=== PATIENT | female | born 1940 | race Caucasian/White ===

== ENCOUNTER 2025-05-25 10:32 | Outpatient (AMB) | payer MEDICARE, SELFPAY ==
--- NOTE | 2025-05-25 10:33 | A.OFFVIS_ITS ---
Vital Signs 05/25/25 10:37 Height 5 ft 8 in BP 140/76 H Blood Pressure Location Rt brachial Position Sitting Pulse 81 Pulse Source Pulse Oximeter Pulse Oximetry (%) 97 Oxygen Delivery Method Room Air Intake Visit Reasons: ENP - Parkinson's, Tremors, Falls, Magnetic Gait Intake Note: Parkinson's, Tremors and Falls Hospice/Home Health Aide Required: No Accompanied by: Daughter Allergies erythromycin base Allergy (Unknown, Verified 05/25/25 10:33) Unknown Penicillins Allergy (Unknown, Verified 05/25/25 10:33) Unknown Medication List - Last Reconciled 05/25/25 by Diane Butterfield MD alendronate 70 mg PO QWEEK cholecalciferol (vitamin D3) 25 mcg PO DAILY fluticasone propionate 50 mcg/actuation 1 spray intranasal DAILY losartan 100 mg PO DAILY mecobalamin (vitamin B12) 1,000 mcg PO DAILY melatonin 3 mg PO BEDTIME PRN sertraline (Zoloft) 100 mg PO DAILY HPI Comments Details: 84Y/Bartolome comes for evaluation of possible parkinsons. she is currently at [facility] for pats 7 mths and has difficulty adjusting . At the facility her PCP noticed some parkinsonian features. she has occasional tremors in colleen hands .she denies memory issues now but when she was depressed her cognition was worse.she is accompanied by her daughter who is concerned a bout her memory she reports chronic pain due to spinal stenosis , rheumatoid arthritis and worsens her depression she has frequent falls. she denies any vivid dreams or acting out her dreams she has longstanding h/o depression with recent worsening due to her medical issues she used to be independent prior to her falls , compression fracture that started last year. Her voice is softer , has some drooling , hand writing is smaller,she can use her utensils , has trouble dressing and showers- gets help. 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 Father No problems noted. Social History Comment: Social drinker Patient Tobacco Use Status: Current someday Tobacco user Physical Exam Vital Signs: Last Vital Signs Pulse 81 05/25/25 10:37 BP 140/76 H 05/25/25 10:37 Pulse Ox 97 05/25/25 10:37 Oxygen Delivery Method Room Air 05/25/25 10:37 Const Orientation/consciousness: patient oriented x3 Eyes Pupils: Equal, round and reactive pupils present Neuro Other: Mild decreased blink and facial expression Mild hyphonia No tremors Mild cogwheel rigidity colleen UE FFM decreased colleen Foot taps - decreased colleen Gait- stooped , pain in back slow and off balance General: patient oriented x3, moves all extremities and no focal motor deficits Cranial nerves: Yes Facial sensation intact/muscles of mastication intact, Yes Equal, round and reactive pupils present, Yes Bilaterally intact EOM present, Yes Nystagmus not present, Yes Normal facial strength present, Yes Midline tongue present and Yes Ability to bilaterally elevate shoulders present Motor exam (neuro): 5/5 motor strength present throughout Deep tendon reflexes (DTR's): Right triceps reflex intensity grade: 2+, Left triceps reflex intensity grade: 2+, Rt Biceps (C5, C6): 2+, Left biceps reflex intensity grade: 2+, Right brachioradialis reflex intensity grade: 2+, Left brachioradialis reflex intensity grade: 2+, Right patellar reflex intensity grade: 2+ and Left patellar reflex intensity grade: 1+ Coordination: [id number] test normal Assessment & Plan Assessment & Plan (1) Cognitive impairment: Code(s): R41.89 - Other symptoms and signs involving cognitive functions and awareness Category: Medical (2) Parkinsonism: Comment: ? vascular , spinal stenosis. she has frequent falls Code(s): G20.C - Parkinsonism, unspecified Category: Medical Plan MRI report bob Loja for review Neuropsych evaluation I will trial her on carbidopa/levodopa 25/100 bid to see of it helps with her gait and movements Check Vit B 12 TSH ESR BARTOLO CBC and CMP to r/o revrsible causes Orders: Referrals Neuropsychiatry Referral R41.89 - Other symptoms and signs involving cognitive functions and awareness Medications: New carbidopa-levodopa 25-100 mg (Sinemet) 1 tab PO BID 60 tabs 4RF Coding Level of Care Code New Pt Level 4 (51581) Complex visit Add On G2211 Diagnoses Cognitive impairment R41.89 Parkinsonism G20.C
[2025-05-25 10:37] VITALS: BP 140/76; PULSE 81; O2SAT 97
--- OUTSIDE RECORDS SUMMARY | 2025-05-25 12:35 | XMS_ITS | Encounter Summary ---
Author Organization [facility] Address [address] [place] [address] Phone Care Team Providers Care Home Advisor Name Role Phone Venkata Walton MD Primary Care Provider [phone]- [phone] Encounter Details Date Type Department Care Team (Late st Contact Info) Description 02/22/2025 Procedure Pass [facility] Interventional [facility]iology [address] [place] [address] Social History Tobacco Use Types Packs/Day Years Used Date Smoking Tobacco: Never Smokeless Tobacco: Never Alcohol Use Standard Drinks/Week Comments No 0 (1 standard drink = 0.6 oz pur e alcohol) Home Health Assessment: Transportation Answer Date Recorded Lack of Transportation (Medical) No 05/24/2024 Lack of Transportation (Non-Medical) No 05/24/2024 Patient Unable or Declines to Respond No 05/24/2024 Education Answer Date Recorded Are you interested in more education? Not on esther e 10/25/2022 Are you concerned about learning? Not on file 10/25/2022 No 10/25/2022 No 10/25/2022 Digital Access Answer Date Recorded No 11/25/2022 No 11/25/2022 Reliable internet access at home? Not on file 11/25/2022 Device with a working camera? Not on file Intimate Partner Violence Answer Date R ecorded Are you denied basic needs s uch as food, clothing, or medical care? No 02/22/2025 In the past 12 months have y ou been in a relationship with a person who hurts, threatens, or tries to control you? No 02/22/2025 Are you denied basic needs s uch as food, clothing, or medical care? No 02/22/2025 In the past 12 months have y ou been in a relationship with a person who hurts, threatens, or tries to control you? No 02/22/2025 Comments No Sex and Gender Information Value Date Recorded Sex Assigned at Female 06/17/2024 3:27 PM EST Legal Sex Female 10:12 PM EDT Gender Identity Female 06/17/2024 3:27 PM EST Sexual Orientation Not on file documented as of this encounter Plan of Treatment Upcoming Encounters Date Type Department Care Team (Late st Contact Info) Description 07/04/2025 9:45 AM EST Office Visit [facility] [address] [place] [address] Vijaya Berger PA-C [address] [address] 07/04/2025 3:00 PM EST Office Visit [facility] [address] [place] [address] Keyana Gutierrez MD [address] [place] [phone] [email or web address] documented as of this encounter Visit Diagnoses Not on filedocumented in this encounter Care Teams Home Advisor Relationship Specialty Start Date End Date Venkata Walton MD [address] [place] [address] PCP - General 07/03/17 documented as of this encounter Additional Source Comments The information contained in this document represents components of the legal health record. It is not the complete legal health record.[facility]
--- OUTSIDE RECORDS SUMMARY | 2025-05-25 12:35 | XMS_ITS | Encounter Summary ---
Author Organization [facility] Address [address] [place] [address] Phone Care Team Providers Care Caul Fat Puller Name Role Phone Venkata Walton MD Primary Care Provider +1- [phone] Encounter Details Date Type Department Care Team (Late st Contact Info) Description 09/08/2017 Ancillary Orders Non-Invasive Cardiology [address] [place] [address] Venkata Walton MD [address] [place] [address] [email or web address] Other form of dyspnea Social History Tobacco Use Types Packs/Day Years Used Date Smoking Tobacco: Never Smokeless Tobacco: Never Alcohol Use Standard Drinks/Week Comments No 0 (1 standard drink = 0.6 oz pur e alcohol) Comments Unknown Sex and Gender Information Value Date Recorded Sex Assigned at Female 06/17/2024 3:27 PM EST Legal Sex Female 10:12 PM EDT Gender Identity Female 06/17/2024 3:27 PM EST Sexual Orientation Not on file documented as of this encounter Plan of Treatment Upcoming Encounters Date Type Department Care Team (Late st Contact Info) Description 07/04/2025 9:45 AM EST Office Visit [facility] Gastroenterology Clinic 10 [place] [address] Vijaya Berger PA-C [address] [id number] 07/04/2025 3:00 PM EST Office Visit [facility] [address] [place] [address] [place] [address] Keyana Gutierrez MD [address] [place] [phone] [email or web address] documented as of this encounter Results * NC Stress Result for Nuclear Stress Test (NWH) (09/08/2017 10:37 AM EDT) Max BP Systolic 160 mmHg [facility] Max BP Diastolic 60 mmHg [facility] Max HR 139 BPM [facility] Resting HR 96 BPM [facility] Resting BP Systolic 130 mmHg [facility] Resting BP Diastolic 80 mmHg [facility] Peak METS 7.0 METS [facility] Peak HR 139 BPM [facility] Peak BP Systolic 160 mmHg [facility] Peak BP Diastolic 60 mmHg [facility] Anatomical Region Laterality Modality Heart Other 09/08/2017 9:57 AM EDT 09/08/2017 10:37 AM EDT Narrative 09/08/2017 12:31 PM EDT Stress Test Result The heart rate changed from 96 bpm at rest to 139 bpm at peak stress. The blood pressure changed from 130/80 mmHg at rest to 160/60 mmHg at peak stress. The patient's functional capacity is 7.0 METS. Exercise Stress Test Report: Reason for termination: fatigue Summary: Resting ECG: SR/ST HR 83-103 incomplete IVCD and NSSTW Functional capacity:Good Heart rate response to exercise:Appropriate Blood pressure response to exercise:Normal resting-appropriate response Chest pain:None Arrhythmias:Ocassional PAC ST-T changes:See below Overall impression: Equivocal exercise test Conclusion: Caterina Chopra exercised for 6:16 Minutes on a standard Neville protocol achieving 96% MPHR (139 BPM) and 7.00 METS. Test terminated due to fatigue Summary: 1. EKG: T wave inversions in infero/lateral leads in recovery phase 2. Symptoms: No exertional chest pain or symptoms concerning for angina 3. Exercise physiology: Normal heart rate and BP response to exercise. Max HR 139 with normal HR recovery. Max BP 160/60 from baseline BP of 130/80 . 02 sat 96% and stable throughout the procedure. Good functional capacity for age noted 4. Arrhythmia:Ocassional PAC Conclusion: Equivocal ETT. T wave inversions in infero/lateral leads in recovery phase. No exertional chest pain or symptoms concerning for angina. Vital signs at baseline at time of discharge from the lab. Nuclear images to follow. EKG reviewed with Dr. Ventura. Dana Ragsdale PHARMACY OPERATIONS COORDINATOR us Venkata Walton MD CV NM CARDIAC Final Resu lt documented in this encounter Visit Diagnoses Diagnosis Other form of dyspnea Other form of dyspnea documented in this encounter Care Teams Caul Fat Puller Relationship Specialty Start Date End Date Venkata Walton MD [address] [place] [address] [email or web address] PCP - General 07/03/17 documented as of this encounter Additional Source Comments The information contained in this document represents components of the legal health record. It is not the complete legal health record.[facility]
--- OUTSIDE RECORDS SUMMARY | 2025-05-25 12:35 | XMS_ITS | Encounter Summary ---
Author Organization [facility] Address [address] [place] [address] Phone Care Team Providers Care High Pressure Firer Name Role Phone Venkata Walton MD Primary Care Provider +1- [phone] Reason for Referral * MRI/CAT Scan - Closed Specialty Diagnoses / Procedures Referred By Contac t Referred To Contact Radiology Diagnoses Other form of dyspnea Procedures NC Myocardial Perfusion Exercise Multiple Venkata Walton MD Phone: tel: fax: mailto: Referral ID Status Reason Start Date Expiration Date Visits Re quested Visits Authorized [id number] Closed 09/01/2017 09/01/2018 1 1 Encounter Details Date Type Department Care Team (Late st Contact Info) Description 09/01/2017 Ancillary Orders Virtual Department 30 [place] [address] Venkata Walton MD [address] [place] [address] [email or web address] Other form of dyspnea Social History [...] Description 07/04/2025 9:45 AM EST Office Visit [facility] Gastroenterology Clinic 10 [place] [address] Vijaya Berger PA-C [address] [facility] 2 [place] [address] [email or web address] 07/04/2025 3:00 PM EST Office Visit [facility] [address] [place] [address] Keyana Gutierrez MD [address] [address] [email or web address] documented as of this encounter Results * NC Myocardial Perfusion Exercise Multiple (09/08/2017 10:37 AM EDT) Anatomical Region Laterality Modality Heart, Vascular Nuclear Medicine 09/08/2017 11:2 5 AM EDT Impressions 09/08/2017 11:46 AM EDT Normal cardiac scintigraphy. No findings of prior infarction or current ischemia are seen. The appearance is unchanged relative to prior imaging. S/S: Dyspnea, shortness of breath POS - [id number] Narrative 09/08/2017 11:46 AM EDT The patient is injected intravenously with 10 mCi of Tc99m labeled Cardiolite at rest and 31.3 mCi with the same agent at stress. SPECT images are obtained of both injections and are gated at stress. The patient is stressed utilizing an exercise protocol and achieved a peak heart rate which is 96% of that predicted. Evaluation of the left ventricular perfusion discloses a normal sized left ventricular cavity. No fixed or reversible perfusion defects are seen. There is normal wall motion and wall thickening evident with a greater than 70% left ventricular ejection fraction estimated. No significant changes seen relative to prior imaging from July 27, 2015.. Procedure Note Kobe Boone MD - 09/08/2017 The patient is injected intravenously with 10 mCi of Tc99m labeledCardiolite at rest and 31.3 mCi with the same agent at stress. SPECTimages are obtained of both injections and are gated at stress. Thepatient is stressed utilizing an exercise protocol and achieved a peakheart rate which is 96% of that predicted. Evaluation of the left ventricular perfusion discloses a normal sized leftventricular cavity. No fixed or reversible perfusion defects are seen.There is normal wall motion and wall thickening evident with a greaterthan 70% left ventricular ejection fraction estimated. No significantchanges seen relative to prior imaging from July 27, 2015.. IMPRESSION: Normal cardiac scintigraphy. No findings of prior infarction or currentischemia are seen. The appearance is unchanged relative to priorimaging. S/S: Dyspnea, shortness of breath POS - [id number] Venkata Walton MD CV NM CARDIAC Final Resu lt documented in this encounter Visit Diagnoses Diagnosis Other form of dyspnea Other form of dyspnea documented in this encounter Care Teams High Pressure Firer Relationship Specialty Start Date End Date Venkata Walton MD [address] [place], [place] [id number] [email or web address] PCP - General 07/03/17 documented as of this encounter Additional Source Comments The information contained in this document represents components of the legal health record. It is not the complete legal health record.[facility]
--- OUTSIDE RECORDS SUMMARY | 2025-05-25 12:35 | XMS_ITS | Encounter Summary ---
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 Procedures Evaluate & Treat Syed Sequeira MD Phone: tel: fax: [address] [address] Phone: tel: Referral ID Status Reason Start Date Expiration Date Visits Re quested Visits Authorized [id number] Closed 10/24/2021 06/29/2022 50 50 Encounter Details Date Type Department Care Team (Latest Contact Info) Description 06/13/2021 Transcribe Orders [facility] [address] [place] [address] Syed Sequeira MD [address] [place] [address] Encounter for rehabilitation (Primary Dx) Social History Tobacco Use Types Packs/Day Years [...] Description 07/04/2025 9:45 AM EST Office Visit [facility] Gastroenterology Clinic 10 [place] [address] Vijaya Berger PA-C [address] [address] 07/04/2025 3:00 PM EST Office Visit [facility] [address] [place] [address] Keyana Gutierrez MD [address] [place] [address] [email or web address] Scheduled Referrals Name Type Priority Associated Diagnoses Orde r Schedule Ambulatory referral to [facility] Occupational Therapy Outpatient Referral Routine Encounter for rehabilitation Ordered: 06/13/2021 documented as of this encounter Visit Diagnoses Diagnosis Encounter for rehabilitation- Primary documented in this encounter Care Teams Retrieval Specialist Relationship Specialty Start Date End Date Venkata Walton MD [address] [place] [address] PCP - General 07/03/17 documented as of this encounter Additional Source Comments The information contained in this document represents components of the legal health record. It is not the complete legal health record.[facility]
--- OUTSIDE RECORDS SUMMARY | 2025-05-25 12:35 | XMS_ITS | Encounter Summary ---
Author Organization [facility] Address [address] [place] [address] Phone Care Team Providers Care Lettuce Trimmer Name Role Phone Venkata Walton MD Primary Care Provider +1- [phone] Encounter Details Date Type Department Care Team (Late st Contact Info) Description 09/08/2017 Ancillary Orders Virtual Department [address] [place] [address] Venkata Walton MD [address] [place] [address] Social History Tobacco Use Types Packs/Day Years [...] 07/04/2025 9:45 AM EST Office Visit [facility] Gastroenterology Clinic 10 [place] [address] Vijaya Berger PA-C [address] [address] 07/04/2025 3:00 PM EST Office Visit [facility] [address] [place] [address] Keyana Gutierrez MD [address] [place] [address] [email or web address] documented as of this encounter Visit Diagnoses Not on filedocumented in this encounter Care Teams Lettuce Trimmer Relationship Specialty Start Date End Date Venkata Walton MD [address] [place] [address] [email or web address] PCP - General 07/03/17 documented as of this encounter Additional Source Comments The information contained in this document represents components of the legal health record. It is not the complete legal health record.[facility]
--- OUTSIDE RECORDS SUMMARY | 2025-05-25 12:35 | XMS_ITS | Clinical Summary ---
Author Organization [facility] Address [address] [place] [address] Phone Care Team Providers Care Record Searcher Name Role Phone Venkata Walton MD Primary Care Provider [phone] Allergies Active Allergy Reactions Criticality Noted Date Comments Erythromycin Base Unknown 06/14/2016 Other 06/14/2016 Other reaction(s): shakiness, diahrrea Penicillin G Benzathin,Procain 08/25/2017 Penicillin G Sodium Unknown 06/14/2016 Penicillin V Potassium Unknown 06/14/2016 Medications methotrexate sodium 25 mg/mL injection once a week. Active amitriptyline (ELAVIL) 25 MG tablet Take 25 mg by mouth nightly. Active folic acid (FOLVITE) 1 MG tablet Take 4 mg by mouth daily. 4 Active losartan (COZAAR) 100 MG tablet Take 100 mg by mouth daily. Active cholecalciferol (VITAMIN D3) 1,000 unit tablet Take 5,000 Units by mouth daily. 4 Active alendronate (FOSAMAX) 70 MG tablet Take 70 mg by mouth every 7 days. 4 Active vitamins A,C,E-zinc-tr er (PRESERVISION AREDS) 4,296 mcg-226 mg-90 mg Cap Take 1 capsule by mouth 2 (two) times a day with meals. Active acetaminophen (TYLENOL) 500 MG tablet Take 1,000 mg by mouth every 8 (eight) hours as needed for pain (specific location in comments). 4 Active polyethylene glycol (MIRALAX) 17 gram packet Take 17 g by mouth daily. 30 packet Active celecoxib (CELEBREX) 200 MG capsule Take 200 mg by mouth daily. Active calcitonin, salmon, (MIACALCIN) 200 unit/actuation nasal spray 1 spray by Nasal route daily. Active sertraline (ZOLOFT) 100 MG tablet Take 100 mg by mouth every morning. Active diclofenac sodium (VOLTAREN) 1 % Gel Apply 2 g topically 4 (four) times a day. Active gabapentin (NEURONTIN) 100 MG capsule Take 2 capsules (200 mg total) by mouth nightly at bedtime. Active Additional Information Patient not taking.Reported on 02/22/2025 lidocaine 4 % Place 1 patch onto the skin daily. Active Additional Information Patient not taking.Reported on 02/22/2025 Active Problems Problem Noted Date Diagnosed Date Hyponatremia 09/29/2024 Assessment & Plan (10/02/2024 4:33 PM EDT): Suspect hypovolemic hyponatremia, possibly pain contributing. Given poor oral intake. Sodium levels have improved following IV fluid, oral fluids encouraged. 10/01: Hyponatremia resolved. -Trend -TSH within normal limits -Serum Osmo and urine sodium & osmo obtained -Nutrition consult for wt loss, decreased appetite Assessment & Plan (10/01/2024 11:57 AM EDT): Suspect hypovolemic hyponatremia, possibly pain contributing. Given poor oral intake. Sodium levels have improved following IV fluid, oral fluids encouraged. 10/01: Hyponatremia resolved. -Trend -TSH within normal limits -Serum Osmo and urine sodium & osmo obtained -Nutrition consult for wt loss, decreased appetite Assessment & Plan (09/30/2024 9:57 AM EDT): Suspect hypovolemic hyponatremia, possibly pain contributing. Given poor oral intake. Sodium levels have improved following IV fluid, will encourage oral fluids today. -Trend -TSH within normal limits -Serum Osmo pending -Urine sodium, urine Osmo pending -Nutrition consult for wt loss, decreased appetite Assessment & Plan (09/29/2024 8:31 PM EDT): Suspect hypovolemic hyponatremia, possibly pain contributing. Given poor oral intake. -Continue IV fluid -Recheck BMP in the morning Constipation 09/29/2024 Assessment & Plan (10/02/2024 4:33 PM EDT): Patient presented with 10-day history of worsening constipation likely in the setting of worsening lower back pain with limited mobility and poor oral intake. No evidence of bowel obstruction or other intra-abdominal pathology on CT abdomen. Feels less distended. Several small hard BMs documented yesterday from 6am-2pm. Patient looking to do another enema. Small BM yesterday after Fleet. -TSH within normal limits -s/p Fleet enema x 1 - Increase MiraLAX to 3 times daily -Continue Colace BID - Continue senna nightly Assessment & Plan (10/01/2024 3:23 PM EDT): Patient presented with 10-day history of worsening constipation likely in the setting of worsening lower back pain with limited mobility and poor oral intake. No evidence of bowel obstruction or other intra-abdominal pathology on CT abdomen. Feels less distended. Several small hard BMs documented yesterday from 6am-2pm. Patient looking to do another enema. -Repeat fleet enema -TSH within normal limits -s/p Fleet enema x 1 -C/W MiraLAX twice daily -Colace BID -Adding senna nightly Assessment & Plan (09/30/2024 1:36 PM EDT): Patient presented with 10-day history of worsening constipation likely in the setting of worsening lower back pain with limited mobility and poor oral intake. No evidence of bowel obstruction or other intra-abdominal pathology on CT abdomen. Patient moving bowels today, feels less distended. -TSH within normal limits -s/p Fleet enema x 1 -C/W MiraLAX twice daily -Colace BID Assessment & Plan (09/29/2024 8:17 PM EDT): Patient presented with 10-day history of worsening constipation likely in the setting of worsening lower back pain with limited mobility and poor oral intake. No evidence of bowel obstruction or other intra-abdominal pathology on CT abdomen. -Observe on MedSurg -TSH reflex in the morning -Will give Fleet enema x 1 -Start MiraLAX twice daily -Start LR 125 cc/h x 1 L -Serial abdominal examination Anemia 09/29/2024 Assessment & Plan (10/02/2024 4:33 PM EDT): Evidence of normocytic anemia. H&H 11., slightly trending down from hemoglobin of 12.9 in June. 09/30: Hemoglobin has down trended slightly from 11.3->10.6 today. FIT testing positive. Lovenox held. And PPI was empirically started in setting of NSAID use. Possible early gastritis contributing. Though given her constipation, will need to consider colonoscopy screening inpatient vs outpatient pending clinical course. 10/01: H&H 11.6/34.5 -Trend; goal hemoglobin greater than 7 -Empiric PPI -Folate >20, B12 wnl -Iron studies show anemia of chronic disease -FIT + ; PCP followup to consider colonoscopy to anemia/constipation persist Assessment & Plan (10/01/2024 3:23 PM EDT): Evidence of normocytic anemia. H&H 11., slightly trending down from hemoglobin of 12.9 in June. 09/30: Hemoglobin has down trended slightly from 11.3->10.6 today. FIT testing positive. We will hold Lovenox, trend hemoglobin. Will start empiric PPI in setting of NSAID use. Possible early gastritis contributing. Though given her constipation, will need to consider colonoscopy screening inpatient vs outpatient pending clinical course. 10/01: H&H 11.6/34.5 today. -Trend; goal hemoglobin greater than 7 -Empiric PPI -Folate >20, B12 wnl -Iron studies show anemia of chronic disease -FIT + ; PCP followup to consider colonoscopy to anemia/constipation persist Assessment & Plan (09/30/2024 9:54 AM EDT): Evidence of normocytic anemia. H&H 11., slightly trending down from hemoglobin of 12.9 in June. Hemoglobin has down trended slightly from 11.3->10.6 today. FIT testing positive. We will hold Lovenox, trend hemoglobin. Will start empiric PPI in setting of NSAID use. Possible early gastritis contributing. Though given her constipation, will need to consider colonoscopy screening inpatient vs outpatient pending clinical course. -Trend; goal hemoglobin greater than 7 -Start empiric PPI -Folate, B12 pending -Iron studies show anemia of chronic disease - FIT + Assessment & Plan (09/29/2024 8:31 PM EDT): Evidence of normocytic anemia. H&H 11.3, slightly trending down from hemoglobin of 12.9 in June. -Adding on iron studies -Continue to trend H&H - fit test H/O: compression fracture of spine 09/29/2024 Assessment & Plan (10/02/2024 4:33 PM EDT): Patient has multiple vertebral compression fracture with known L2 subacute moderate and an acute moderate to severe compression over the T11 vertebral body. Patient has an appointment for kyphoplasty with Dr. Sepulveda on October 01. She has lumbar spine tenderness though none at the region of T11. She reports ongoing lower back pain, also with right hip tenderness. CT did not reveal any hip fracture. She has no radicular symptoms. No focal weakness, pain limits mobilization however. Hip pain possibly referred from lumbar compression injury. If pain not improved following kyphoplasty, may consider MRI of hip. Feeling much better status post kyphoplasty on 10/01. - Continue Calcitonin nasal spray -Continue with Tylenol 3 times a day -Ibuprofen as needed for additional support - Continue Voltaren gel to right hip -Continue with gabapentin. 200 mg nightly - Has not needed any oxycodone since 09/30, can continue however -PT/OT -C/W Bisphosphonate, VitD supplement -Plan to discharge to acute rehab on 10/03 Assessment & Plan (10/01/2024 11:57 AM EDT): Patient has multiple vertebral compression fracture with known L2 subacute moderate and an acute moderate to severe compression over the T11 vertebral body. Patient has an appointment for kyphoplasty with Dr. Sepulveda on [place] 4. She has lumbar spine tenderness though none at the region of T11. She reports ongoing lower back pain, also with right hip tenderness. CT did not reveal any hip fracture. She has no radicular symptoms. No focal weakness, pain limits mobilization however. Hip pain possibly referred from lumbar compression injury. If pain not improved following kyphoplasty, may consider MRI of hip. -Start Calcitonin nasal spray -Continue with Tylenol 3 times a day -Ibuprofen as needed for additional support -Start topical Voltaren gel to right hip -Continue with gabapentin. 200 mg nightly -Low-dose oxycodone 2.5 mg every 4 as needed for severe breakthrough pain - Consider consult with IR appreciated for kyphoplasty 10/01 -PT/OT -Consider MRI left hip if no improvement -C/W Bisphosphonate, VitD supplement Assessment & Plan (09/30/2024 9:57 AM EDT): Patient has multiple vertebral compression fracture with known L2 subacute moderate and an acute moderate to severe compression over the T11 vertebral body. Patient has an appointment for kyphoplasty with Dr. Sepulveda on October 01. She has lumbar spine tenderness though none at the region of T11. She reports ongoing lower back pain, also with right hip tenderness. CT did not reveal any hip fracture. She has no radicular symptoms. No focal weakness, pain limits mobilization however. Hip pain possibly referred from lumbar compression injury. If pain not improved following kyphoplasty, may consider MRI of hip. -Start Calcitonin nasal spray -Continue with Tylenol 3 times a day -Ibuprofen as needed for additional support -Start topical Voltaren gel to right hip -Continue with gabapentin. 200 mg nightly -Low-dose oxycodone 2.5 mg every 4 as needed for severe breakthrough pain - Consider consult with IR appreciated for kyphoplasty 10/01 -PT/OT -Consider MRI left hip if no improvement -C/W Bisphosphonate, VitD supplement Assessment & Plan (09/29/2024 8:34 PM EDT): Patient has multiple vertebral compression fracture with unknown L2 subacute moderate and an acute moderate to severe compression over the T11 vertebral body. Patient has an appointment for kyphoplasty with Dr. Sepulveda on October 01. -Continue with Tylenol 3 times a day -Ibuprofen as needed for additional support -Continue with gabapentin. 200 mg nightly -Low-dose oxycodone 2.5 mg every 4 as needed for severe breakthrough pain - consider consult with IR if still here friday Abnormal electrocardiogram 10/15/2017 Assessment & Plan (10/15/2017 10:13 AM EDT): Her EKG is actually normal variant. She has small nondiagnostic Q waves in the inferior leads but a nuclear stress test is normal. I reassured her that she doesn't have any evidence of coronary artery disease. We should continue to optimize her cardiac risk factors however. Malaise and fatigue 10/15/2017 Assessment & Plan (10/15/2017 10:13 AM EDT): The episode of her fatigue is unclear. I think it may have just been a simple virus. I don't think it was cardiac in nature. She claims once she believes she had a fast heart rate. I told her that if she does have repeat episodes or she has episodes where her heart is racing that we will get her a Holter monitor. Currently she is feeling fine and I'll think further workup is needed unless her symptoms recur. Benign essential hypertension 10/15/2017 Assessment & Plan (10/02/2024 4:33 PM EDT): Elevated blood pressure likely in the setting of pain. -Continue losartan with holding parameters. Assessment & Plan (10/01/2024 11:57 AM EDT): Elevated blood pressure likely in the setting of pain. -Continue losartan with holding parameters. Assessment & Plan (09/30/2024 1:36 PM EDT): Elevated blood pressure likely in the setting of pain. -Continue losartan with holding parameters. Assessment & Plan (09/29/2024 8:31 PM EDT): Elevated blood pressure likely in the setting of pain. -Continue losartan with holding parameters. Assessment & Plan (10/15/2017 10:13 AM EDT): Her blood pressures well controlled on the current medication losartan. Encounters Date Type Department Care Team Description 02/22/2025 10:12 AM EDT Anesthesia Event [facility] [address] [place] [address] Tian Azar MD 02/22/2025 10:00 AM EDT - 02/22/2025 12:00 PM EDT Surgery [facility] [address] [place] [address] Jean Sepulveda MD KYPHOPLASTY IR 02/22/2025 9:02 AM EDT - 02/22/2025 1:30 PM EDT Hospital Encounter [facility] [address] [place] [address] Jean Sepulveda MD Discharge Disposition: Home or Self Care 02/22/2025 Procedure Pass [facility] [address] [place] [address] from Last 3 Months Social History Tobacco Use Types Packs/Day Years [...] PM EST Sexual Orientation Not on file Last Filed Vital Signs Vital Sign Reading Time Taken Comments Blood Pressure 175/79 02/22/2025 1:00 PM EDT Pulse 84 11/18/2024 6:15 PM EDT Temperature 36.9 C (98.4 F) 11/18/2024 6:15 PM EDT Respiratory Rate 18 02/22/2025 1:00 PM EDT Oxygen Saturation 93% 02/22/2025 1:00 PM EDT Inhaled Oxygen Concentration - - Weight 63.5 kg (140 lb) 01/10/2025 7:00 PM EDT Height 172.7 cm (5' 8 ) 01/10/2025 7:00 PM EDT Body Mass Index 21.29 01/10/2025 7:00 PM EDT Plan of Treatment Upcoming Encounters Date Type Department Care Team (Late st Contact Info) Description 07/04/2025 9:45 AM EST Office Visit [facility] [address] [place] [id number] Vijaya Berger PA-C [address] [place] [phone] 07/04/2025 3:00 PM EST Office Visit [facility] [address] [place] [phone] Keyana Gutierrez MD [address] [place] [phone] [email or web address] Health Maintenance Due Date Last Done Comments DEPRESSION SCREENING 1952 BLOOD PRESSURE 11/21/2024 05/24/2024 INFLUENZA VACCINE (#1) 2025 3, 04/05/2022, 04/07/2021, Additional history exists COVID-19 VACCINE ( season) 2025 04/16/2023, 04/16/2023, 11/03/2022, Additional history exists CREATININE LEVEL 02/22/2026 02/22/2025, 09/2024, 09/30/2024, Additional history exists POTASSIUM LEVEL 02/22/2026 02/22/2025, 04/0 09/2024, 09/30/2024, Additional history exists Adult Td,Tdap Booster 02/08/2029 02/08/2019 PNEUMOCOCCAL VACCINES (50+ years) Completed 07/10/2015, 03/21/2006 ZOSTER VACCINES Completed 03/12/2020, 04/30, 03/12/2019 RSV VACCINE Completed 07/03/2023 OSTEOPOROSIS SCREENING INITIAL (ONE-TIME) Completed 12/13/2024 HEPATITIS A VACCINES Aged Out No long er eligible based on patient's age to complete this topic HIB VACCINES Aged Out No longer eligi ble based on patient's age to complete this topic MENINGOCOCCAL VACCINES (ACWY) Aged Out No longer eligible based on patient's age to complete this topic MENINGOCOCCAL VACCINES (B) Aged Out N o longer eligible based on patient's age to complete this topic Medical Devices Implanted Type Area Blasting Cap Assembler Device Identifier Shelf Expiration Date Model / Serial / Lot Kit Cement Bone Kyphon Xpede Polymethylmethacrylate Mixer - [id number] Implanted:Qty: 1 on 10/01/2024 by Jean Sepulveda MD at [facility] Bone Cement Spine Thoracic [employer] 04/29/2027 CX01B / / [id number] Description:T11 CEMENT Kit Cement Bone Kyphon Xpede Polymethylmethacrylate Mixer - [id number] Implanted:Qty: 1 on 10/01/2024 by Jean Sepulveda MD at [facility] Bone Cement Spine Thoracic [employer] [id number] 04/29/2027 CX01B / / [id number] Description:L2 BONE CEMENT Kit Cement Bone Kyphon Xpede Polymethylmethacrylate Mixer - [id number] Implanted:Qty: 1 on 02/22/2025 by Jean Sepulveda MD at [facility] Bone Cement Left: Back [employer] [id number] 07/30/2027 CX01B / / [id number] Kit Cement Bone Kyphon Xpede Polymethylmethacrylate Mixer - [id number] Implanted:Qty: 1 on 02/22/2025 by Jean Sepulveda MD at [facility] Bone Cement Right: Back [employer] [id number] 07/30/2027 CX01B / / [id number] Procedures Procedure Name Priority Date/Time Associated Diagnosis Comments KYPHOPLASTY (IR) Routine 02/22/2025 11:2 6 AM EDT Compression fracture of T12 vertebra, initial encounter BASIC METABOLIC PANEL (BMP) STAT 02/22/2025 10:03 AM EDT CBC AND DIFFERENTIAL STAT 02/22/2025 10:03 AM EDT BD DXA AXIAL (SPINE) WITH HIP Routine 12/13/2024 11:23 AM EDT Age-related osteoporosis without current pathological fracture from Last 3 Months or Most Recently Relevant to Health Maintenance Results * KYPHOPLASTY (IR) (02/22/2025 11:26 AM EDT) Anatomical Region Laterality Modality X-Ray Angiograph y Impressions 03/07/2025 9:37 AM EDT T12 kyphoplasty performed from bipedicle approach during MAC anesthesia. Bilateral vertebral filling achieved. Follow-up recommendations: Avoid submersion for 24 hours. Increase activity as tolerated with care to avoid heavy lifting and strenuous activities Narrative 03/07/2025 9:37 AM EDT HISTORY: Severe back pain. Pathologic, active thoracic compression fractures affecting T 12 secondary to osteoporosis. Previous treatment of T11 and L2 compression fractures. PROCEDURE: Preprocedure assessment included plain film and MRI. New active T12 compression fracture with mid to superior vertebral body edema evident. Patient was placed prone on the fluoroscopy table. Prophylactic antibiotics delivered and IV conscious sedation initiated. Due to patient's age anesthesia was consulted for delivery of sedation. MAC anesthesia provided. Medications: Subcutaneous buffered 1% lidocaine 8 cc 0.25% bupivacaine 8 cc Skin overlying the thoracic spine was prepped and draped sterilely. Buffered Lidocaine and Marcaine anesthetic placed over the T12 pedicles. 8.5 gauge kyphoplasty needles were advanced to the posterior aspect of the T12 vertebral body during careful fluoroscopic monitoring. Following curetting, creation of space within the central vertebral body achieved with kyphoplasty balloons bilaterally. Barium impregnated polymethyl methacrylate cement then instilled. Once bilateral fill of target area achieved, needles were removed. Hemostasis obtained with pressure. Final appearance documented in the AP and lateral projections. Procedure well tolerated. No immediate complication. Radiation tracking: Fluoroscopy time 13.9 minutes, DAP 1543 mGy/m Complications: None. FINDINGS: Preliminary images of the spine show moderate severity compression fracture affecting superior endplate of T12 resulting in approximate 35% loss of vertebral height. Postprocedural changes evident T11 and L2 level with barium impregnated polymethylmethacrylate cement in place. Subsequently needles are placed within the T12 vertebral body following by drilling, curetting, balloon inflation and then instillation of barium impregnated polymethylmethacrylate cement bilaterally. Final images show symmetric, uniform distribution of cement in a front to back and [id number] fashion. No ectopic cement. us Breana Cope PATIENT SERVICES TECHNICIAN IMG IR Final Result * CBC and differential (02/22/2025 10:03 AM EDT) WBC 6.17 4.00 - 11.00 K/uL [facility] RBC 4.19 4.00 - 5.20 M/uL [facility] HGB 12.7 12.0 - 16.0 g/dL [facility] HCT 38.7 36.0 - 46.0 % [facility] PLT 232 150 - 450 K/uL [facility] MCV 92.4 80.0 - 100.0 fL [facility] MCH 30.3 27.0 - 31.0 pg [facility] MCHC 32.8 32.0 - 36.0 g/dL [facility] RDW 14.0 11.5 - 14.5 % [facility] MPV 8.9 8.4 - 12.0 fL [facility] NRBC 0.00 0.00 /100 WBCs [facility] ABSOLUTE NRBC 0.00 0.00 K/uL [facility] DIFF METHOD Auto [facility] NEUTS 70.5 48.0 - 76.0 % [facility] LYMPHS 19.1 18.0 - 41.0 % [facility] MONOS 7.8 4.0 - 11.0 % [facility] EOS 1.8 0.0 - 5.0 % [facility] BASOS 0.5 0.0 - 1.5 % [facility] Granulocytes, immature (%) 0.3 0.0 - 0.9 % [facility] ABSOLUTE NEUTS 4.35 1.92 - 7.60 K/uL [facility] ABSOLUTE LYMPHS 1.18 0.72 - 4.10 K/uL [facility] ABSOLUTE MONOS 0.48 0.16 - 1.10 K/uL [facility] ABSOLUTE EOS 0.11 0.00 - 0.50 K/uL [facility] ABSOLUTE BASOS 0.03 0.00 - 0.15 K/uL [facility] Granulocytes, immature 0.02 0.00 - 0.09 K/uL [facility] Blood 02/22/2025 10:0 3 AM EDT 02/22/2025 10:13 AM EDT us Jean Sepulveda MD LAB BLOOD BKR ORDERAB LES Final Result [facility] [address] [place] [address] * Basic metabolic panel (02/22/2025 10:03 AM EDT) SODIUM 135 133 - 146 mmol/L [facility] CHLORIDE 99 96 - 108 mmol/L [facility] POTASSIUM 4.1 3.3 - 5.1 mmol/L [facility] CO2 26 21 - 35 mmol/L [facility] BUN 12 6 - 19 mg/dL [facility] CREATININE 0.60 0.5 - 1.5 mg/dL [facility] GLUCOSE 95 70 - 99 mg/dL [facility] CALCIUM 9.7 8.4 - 10.3 mg/dL [facility] EGFR 88 >59 mL/min/1.7 3m2 [facility] Comment:Estimated glomerular filtration rate calculated using the CKD-EPI refit equation. ANION GAP 14 10 - 20 mmol/L [facility] Blood 02/22/2025 10:0 3 AM EDT 02/22/2025 10:13 AM EDT us Jean Sepulveda MD LAB BLOOD BKR ORDERAB LES Final Result [address] [address] * BD DXA AXIAL (SPINE) WITH HIP (12/13/2024 11:23 AM EDT) Anatomical Region Laterality Modality Bone Density Bone Density 12/13/2024 11:2 0 AM EDT Impressions 12/14/2024 12:55 PM EDT Interpretation: Osteopenia. Narrative 12/14/2024 12:55 PM EDT Referred By: BREANA COPE Indications: Osteoporosis Scanner: Evoleen A with serial# of [id number] located at [facility] Bone Density Scan (DXA) 12/13/24 Details of prior DXA scans are available by clicking View Full Report BMD T- Z- Skeletal Site gm/cm2 score score BMD Change Since Prior Scan ------ ----- ----- PA Spine (L1 L3) 1.022 0.10 2.80 N/A Total Hip (Left) 0.697 -2.00 0.30 N/A Femoral Neck (Left) 0.824 -0.20 2.30 N/A Total Hip (Right) 0.690 -2.10 0.20 N/A Femoral Neck (Right) 0.748 -0.90 1.60 N/A ------ ----- ----- * Denotes significant change when >= 0.022 g/cm2 for the spine, 0.027 g/cm2 for the total hip, 0.029 g/cm2 for the femoral neck. Interpretation: Osteopenia. Technical Quality: The PA Spine scan was of marginal quality because of scoliosis (which can decrease or increase BMD). Because only two vertebrae are measurable, interpret PA spine results with caution; serial changes may be more variable than usual. FRAX: A FRAX(r) score was not calculated because the patient indicated use of osteoporosis medication within the past 12 months. Reviewed By: Isela Sharp MD on 12/14/2024 12:55:21 Additional Information: -World Health Organization criteria classify adults based on lowest T-score at PA spine, hip or forearm: Normal (T-score >= -1.0), Osteopenia (T-score between -1 and -2.5), or Osteoporosis (T-score <= -2.5). At [facility], T-scores are compared to peak bone density of a young white gender matched reference population. - For premenopausal women and men under the age of 50, Z-scores (comparison to age, gender, and ethnicity matched reference population) are used: Above expected range for age (Z-score >= 2.0), Within expected range of age (Z-score 1.9 to -1.9), or Below expected range for age (Z-score <= -2.0). - The Bone Health and Osteoporosis Foundation recommends that treatment be considered in men aged more than 50 years and in postmenopausal women with ANY of the following: Prior hip or vertebral fractures; T-score of <= -2.5 at the PA spine or hip; or 10 year fracture probability by FRAX of >= 3% for the hip or >= 20% for major osteoporotic fracture. - The FRAX algorithm (https://www.jan.ac.uk/FRAX/tool.aspx) is designed to predict 10-year fracture risk in treatment-naive adults between the ages of 40 and 90. It is not intended to be used in those receiving pharmacologic osteoporosis treatment. - The TBS is derived from the texture of the DXA spine image and has been shown to be related to bone microarchitecture and fracture risk. This data provides information independent of BMD value. It adds to fracture risk assessment with a FRAX adjusted for TBS score. If your patient had a TBS and qualified for a FRAX score, the reported FRAX score has been adjusted for TBS. TBS Score Interpretation 1.350 and greater Normal bone microarchitecture 1.200 to 1.350 Partially degraded bone microarchitecture 1.200 and less Degraded bone microarchitecture - Including race/ethnicity in the generation of T- or Z-scores or in the FRAX calculation is complicated, and currently undergoing active review to ensure that we can give patients the best information on their risk of fracture. - Some prior studies may not be compatible with our comparison software. - Click on View Full Report to see subsequent pages with images and prior bone density results. Procedure Note Isela Sharp MD - 12/14/2024 Referred By: BREANA COPE Indications: Osteoporosis Scanner: Evoleen A with serial# of [id number] located at [facility] Bone Density Scan (DXA) 12/13/24 Details of prior DXA scans are available by clicking View Full Report BMD T- Z- Skeletal Site gm/cm2 score score BMD Change Since Prior Scan ------ ----- PA Spine (L1 L3) 1.022 0.10 2.80 N/A Total Hip (Left) 0.697 -2.00 0.30 N/A Femoral Neck (Left) 0.824 -0.20 2.30 N/A Total Hip (Right) 0.690 -2.10 0.20 N/A Femoral Neck (Right) 0.748 -0.90 1.60 N/A ------ ----- * Denotes significant change when >= 0.022 g/cm2 for the spine, 0.027g/cm2 for the total hip, 0.029 g/cm2 for the femoral neck. Interpretation: Osteopenia. Technical Quality: The PA Spine scan was of marginal quality because of scoliosis (which can decrease or increase BMD). Because only twovertebrae are measurable, interpret PA spine results with caution; serial changesmay be more variable than usual. FRAX: A FRAX(r) score was not calculated because the patient indicated use of osteoporosis medication within the past 12 months. Reviewed By: Isela Sharp MD on 12/14/2024 12:55:21 Additional Information: -World Health Organization criteria classify adults based on lowestT-score at PA spine, hip or forearm: Normal (T-score >= -1.0), Osteopenia (T-score between -1 and -2.5), or Osteoporosis (T-score <= -2.5). At [facility], T-scores are compared to peak bone density of a young white gender matched reference population. - For premenopausal women and men under the age of 50, Z-scores(comparison to age, gender, and ethnicity matched reference population) are used:Above expected range for age (Z-score >= 2.0), Within expected range of age (Z-score 1.9 to -1.9), or Below expected range for age (Z-score <= -2.0). - The Bone Health and Osteoporosis Foundation recommends that treatment be considered in men aged more than 50 years and in postmenopausal women with ANY of the following: Prior hip or vertebral fractures; T-score of <= -2.5 at the PA spine or hip; or 10 year fracture probability by FRAX of >= 3%for the hip or >= 20% for major osteoporotic fracture. - The FRAX algorithm (https://www.jan.ac.uk/FRAX/tool.aspx) is designed to predict 10-year fracture risk in treatment-naive adultsbetween the ages of 40 and 90. It is not intended to be used in those receiving pharmacologic osteoporosis treatment. - The TBS is derived from the texture of the DXA spine image and has been shown to be related to bone microarchitecture and fracture risk. This data provides information independent of BMD value. It adds to fracture risk assessment with a FRAX adjusted for TBS score. If your patient had a TBSand qualified for a FRAX score, the reported FRAX score has been adjusted for TBS. TBS Score Interpretation 1.350 and greater Normal bone microarchitecture 1.200 to 1.350 Partially degraded bone microarchitecture 1.200 and less Degraded bone microarchitecture - Including race/ethnicity in the generation of T- or Z-scores or in the FRAX calculation is complicated, and currently undergoing active review to ensure that we can give patients the best information on their risk of fracture. - Some prior studies may not be compatible with our comparison software. - Click on View Full Report to see subsequent pages with images andprior bone density results. IMPRESSION: Interpretation: Osteopenia. Breana CASTELLANO BD BONE DENSITY DEXA Final R esult from Last 3 Months or Most Recently Relevant to Health Maintenance Insurance MEDICARE PART A & B [facility] [address] [place] [address] MEDICARE PART A & B [employer] [address] [place] [address] MEDICARE PART A & B [employer] [address] [place] [address] MEDICARE PART A & B [employer] [address] [place] [address] MEDICARE PART A & B [employer] [address] [place] [address] MEDICARE PART A & B [employer] [address] [place] [address] MEDICARE PART A & B Member Subscriber Plan / Payer (Ef fective 2005-Present) Name:Caterina Chopra Member ID:[id number] Relation to Subscriber:Self Name:Caterina Chopra Subscriber ID:[id number] Payer ID:[id number] Group ID:Not on file Type:Medicare Address: [employer] [address] [employer] MEDEX SUPPLEMENT MEDICARE PART A & B [employer] MEDEX SUPPLEMENT MEDICARE PART A & B [employer] MEDEX SUPPLEMENT Advance Directives For more information, please contact: [phone] (9AM - 5PM Marsha/[facility], Friday-Friday) * Full Code (Latest Code Status on File) Date Activated Date Inactivated Comments 09/29/2024 8:00 PM Question Answer Comments Code Status Confirmed With: Patient Code Status Communicated To: Inpatient Attending Care Teams Record Searcher Relationship Specialty Start Date End Date Venkata Walton MD [address] [place] [id number] PCP - General 07/03/17 Additional Source Comments The information contained in this document represents components of the legal health record. It is not the complete legal health record.[facility]
--- OUTSIDE RECORDS SUMMARY | 2025-05-25 12:35 | XMS_ITS | Clinical Summary ---
Author Organization [facility] Address [address] [place] [address] Phone Care Team Providers Care Drilling Field Specialist Name Role Phone Venkata Walton MD Primary Care Provider [phone]- [phone] Allergies Active Allergy Reactions Criticality Noted Date Comments Erythromycin Base Unknown 10/03/2024 Penicillins Rash 10/02/2024 Medications vitamins A,C,E-zinc-tr er (PreserVision AREDS) 4,296 mcg-226 mg-90 mg capsule Take 1 capsule by mouth 2 (two) times a day. Active amitriptyline (ELAVIL) 25 mg tablet Take 1 tablet (25 mg total) by mouth at bedtime. 30 each 5 Active calcitonin salmon (MIACALCIN) 200 unit/actuation nasal spray Administer 1 spray into one nostril 1 (one) time each day. 3.7 mL 5 Active gabapentin (NEURONTIN) 100 mg capsule Take 2 capsules (200 mg total) by mouth at bedtime. 60 each 5 Active losartan (COZAAR) 100 mg tablet Take 1 tablet (100 mg total) by mouth at bedtime. 30 each 5 Active sertraline (ZOLOFT) 100 mg tablet Take 1 tablet (100 mg total) by mouth 1 (one) time each day. 30 each 5 Active amLODIPine (NORVASC) 2.5 mg tablet Take 1 tablet (2.5 mg total) by mouth at bedtime. 30 each 5 Active Active Problems Problem Noted Date Diagnosed Date S/P kyphoplasty 10/03/2024 Tachycardia HTN (hypertension) HLD (hyperlipidemia) Colitis Immunizations Immunization Administration Dates Next Due Moderna SARS-CoV-2 COVID-19, mRNA, LNP-S, preservative free 09/18/2021,02/20/2021,08/16/2020 Pfizer SARS-CoV-2 COVID-19, mRNA, LNP-S, preservative free 11/03/2022,04/05/2022 Surgical History Surgery Date Site/Laterality Comments CATARACT EXTRACTION, BILATERAL HAND SURGERY Right Medical History Medical History Date Comments HTN (hypertension) Colitis HLD (hyperlipidemia) Osteopenia Tachycardia Inflammatory arthritis Family History Relation Name Status Comments Mother eND sTAGE rENAL dISEASE Other HEART ATTACK, S TROKE Social History Tobacco Use Types Packs/Day Years Used Date Smoking Tobacco: Never Tobacco Cessation:Counseling Given: No Alcohol Use Standard Drinks/Week Comments Yes 3 (1 standard drink = 0.6 oz pur e alcohol) Health Literacy Answer Date Recorded How often do you need to hav e someone help you when you read instructions, pamphlets, or other written material from your doctor or pharmacy? Never 10/13/2024 Caregiver: How often do you need to have someone help you when you read instructions, pamphlets, or other written material from your doctor or pharmacy? Not on file 10/13/2024 Transportation Answer Date Recorded Has the lack of transportati on kept you from meetings, work, or from getting things needed for daily living? No Has the lack of transportati on kept you from medical appointments or from getting medications? No 10/04/2024 Social Isolation Answer Date Recorded How often do you feel lonely or isolated from th ose around you? Rarely 10/14/2024 Interpersonal Safety Answer Date Record ed Physical Abuse Unrecognized value 10/03/2024 Verbal Abuse Unrecognized value 10/03/2024 Comments No Sex and Gender Information Value Date Recorded Sex Assigned at Female 10/03/2024 3:04 PM EDT Legal Sex Female 2:34 PM EDT Gender Identity Female 10/03/2024 3:04 PM EDT Sexual Orientation Straight 10/03/2024 3: 04 PM EDT Obstetrics History Last Filed Vital Signs Vital Sign Reading Time Taken Comments Blood Pressure 153/62 10/14/2024 8:00 AM EDT Pulse 62 10/14/2024 8:00 AM EDT Temperature 36.6 C (97.9 F) 10/14/2024 8:00 AM EDT Respiratory Rate 18 10/14/2024 8:00 AM EDT Oxygen Saturation 98% 10/14/2024 8:00 AM EDT Inhaled Oxygen Concentration - - Weight 68 kg (149 lb 14.6 oz) 10/03/2024 12:30 P M EDT Height 170.2 cm (5' 7 ) 10/03/2024 12:30 PM EDT Body Mass Index 23.48 10/03/2024 12:30 PM EDT Plan of Treatment Health Maintenance Due Date Last Done Comments DTaP,Tdap,and Td Vaccines (1 - Tdap) 11/12/1959 Pneumococcal Vaccine: 50+ Years (1 of 1 - PCV) 1990 Zoster Vaccines (1 of 2) 1990 RSV Immunization Adult Patients (1 - 1-dose 75+ series) 11/12/2015 Cholesterol Screening (Lipid Panel) 10/02/2024 Medicare Annual Wellness Visit 10/02/2024 Osteoporosis Screening (Bone Density Screening) 10/02/2024 COVID-19 Vaccine ( season) 2025 11/03/2022, 04/05/2022, 09/18/2021, Additional history exists Influenza Vaccine (#1) 2025 Hypertension/CHF/CAD Annual BMP Blood Test 10/11/2025 10/11/2024, 10/04/2024, 09/30/2024, Additional history exists Falls Risk Assessment 10/14/2025 10/14/2024 Social Influencers of Health Screening 10/14/2025 10/14/2024 Depression Screening Completed 10/14/2024 HIB Vaccines Aged Out No longer eligi ble based on patient's age to complete this topic HPV Vaccines Aged Out No longer eligi ble based on patient's age to complete this topic Hepatitis A Vaccines Aged Out No long er eligible based on patient's age to complete this topic Hepatitis B Vaccines Aged Out No long er eligible based on patient's age to complete this topic IPV Vaccines Aged Out No longer eligi ble based on patient's age to complete this topic MMR Vaccines Aged Out No longer eligi ble based on patient's age to complete this topic Meningococcal ACWY Vaccine Aged Out N o longer eligible based on patient's age to complete this topic Meningococcal B Vaccine Aged Out No l onger eligible based on patient's age to complete this topic RSV Immunization Patients Under 20 months Aged Out No longer eligible based on patient's age to complete this topic Varicella Vaccines Aged Out No longer eligible based on patient's age to complete this topic Procedures Procedure Name Priority Date/Time Associated Diagnosis Comments COMPREHENSIVE METABOLIC PANEL Routine 10/11/2024 5:53 AM EDT from Last 3 Months or Most Recently Relevant to Health Maintenance Results * (ABNORMAL) Comprehensive metabolic panel (10/11/2024 5:53 AM EDT) Sodium 132(L) 133 - 145 mmol/L LAB CHEMISTRY METHOD 10/11/2024 7:08 AM [facility] Potassium 4.5 3.5 - 5.5 mmol/L LAB CHEMISTRY METHOD 10/11/2024 7:08 AM [facility] Chloride 99 96 - 110 mmol/L LAB CHEMISTRY METHOD 10/11/2024 7:08 AM [facility] CO2 29 21 - 32 mmol/L LAB CHEMISTRY METHOD 10/11/2024 7:08 AM [facility] Anion Gap 4 3 - 11 LAB CHEMISTRY METHOD 10/11/2024 7:08 AM [facility] Glucose 84 70 - 100 mg/dL LAB CHEMISTRY METHOD 10/11/2024 7:08 AM [facility] BUN 15 5 - 25 mg/dL LAB CHEMISTRY METHOD 10/11/2024 7:08 AM [facility] Creatinine 0.61 0.50 - 1.10 mg/dL LAB CHEMISTRY METHOD 10/11/2024 7:08 AM [facility] eGFR 89 >=60 mL/min/1. 73m2 LAB CHEMISTRY METHOD 10/11/2024 7:08 AM [facility] Comment:Calculation based on the Chronic Kidney Disease Epidemiology Collaboration (CKD-EPI) equation refit without adjustment for race. BUN/Creatinine Ratio 24.6 LAB CHEMISTRY METHOD 10/11/2024 7:08 AM [facility] Calcium 9.5 8.5 - 10.5 mg/dL LAB CHEMISTRY METHOD 10/11/2024 7:08 AM [facility] AST (SGOT) 20 10 - 42 unit/L LAB CHEMISTRY METHOD 10/11/2024 7:08 AM [facility] ALT (SGPT) 24 10 - 60 unit/L LAB CHEMISTRY METHOD 10/11/2024 7:08 AM [facility] Alkaline Phosphatase 108 42 - 121 unit/L LAB CHEMISTRY METHOD 10/11/2024 7:08 AM [facility] Total Protein 6.1 6.0 - 8.0 g/dL LAB CHEMISTRY METHOD 10/11/2024 7:08 AM [facility] Albumin 3.3 3.2 - 5.0 g/dL LAB CHEMISTRY METHOD 10/11/2024 7:08 AM [facility] Total Bilirubin 0.5 0.0 - 1.4 mg/dL LAB CHEMISTRY METHOD 10/11/2024 7:08 AM [facility] Blood Venous blood specimen / Unknown Venipuncture / Unknown 10/11/2024 5:53 AM EDT 10/11/2024 6:27 AM EDT us Tyra Garcias DO LAB BLOOD ORDERABLES Janee l Result [facility] [address] [place] [address], [place] [phone] from Last 3 Months or Most Recently Relevant to Health Maintenance Insurance MEDICARE [facility] Advance Directives Documents on File Type Date Recorded Patient Biomedical Electronics Technician Expl anation Advance Directives and Living Will 10/14/2024 12:56 PM HEALTH CARE PROXY * Full Code - Default (Latest Code Status on File) Date Activated Date Inactivated Comments 10/03/2024 1:43 PM 10/14/2024 1:56 PM This is order is used when code status has not been discussed with the patient, or code status is otherwise unknown/unconfirmed To update the patient's code status, place a code status order. Do not modify or discontinue any currently active code status orders. Care Teams Drilling Field Specialist Relationship Specialty Start Date End Date Venkata Walton MD [address] [place] [address] [address] [place] [address] PCP - General Internal Medicine 10/04/24
--- OUTSIDE RECORDS SUMMARY | 2025-05-25 12:35 | XMS_ITS | Encounter Summary ---
Author Organization [facility] Address [address] [place] [address] Phone Care Team Providers Care Relief Cook Name Role Phone Venktaa Walton MD Primary Care Provider +1- [phone] Encounter Details Date Type Department Care Team (Late st Contact Info) Description 03/31/2018 Transcribe Orders [facility] [address] [place] [address] Jean Oh MD [address] [place] [address] Social History Tobacco Use Types Packs/Day Years [...] Description 07/04/2025 9:45 AM EST Office Visit [facility] [address] [place] [address] Vijaya Berger PA-C [address] [address] 07/04/2025 3:00 PM EST Office Visit [facility] [address] [place] [address] Keyana Gutierrez MD [address] [place] [phone] [email or web address] documented as of this encounter Visit Diagnoses Not on filedocumented in this encounter Care Teams Relief Cook Relationship Specialty Start Date End Date Venkata Walton MD [address] [place] [address] [email or web address] PCP - General 07/03/17 documented as of this encounter Additional Source Comments The information contained in this document represents components of the legal health record. It is not the complete legal health record.[facility]
--- OUTSIDE RECORDS SUMMARY | 2025-05-25 12:35 | XMS_ITS | Encounter Summary ---
Author Organization [facility] Address [address] [place] [address] Phone Care Team Providers Care Cost Consultant Name Role Phone Venkata Walton MD Primary Care Provider +1- [phone] Encounter Details Date Type Department Care Team (Late st Contact Info) Description 09/29/2024 Procedure Pass [facility] - [facility] [address] [place] [address] Social History Tobacco Use Types Packs/Day Years [...] as food, clothing, or medical care? No 09/29/2024 In the past 12 months have y ou been in a relationship with a person who hurts, threatens, or tries to control you? No 09/29/2024 Are you denied basic needs s uch as food, clothing, or medical care? No 09/29/2024 In the past 12 months have y ou been in a relationship with a person who hurts, threatens, or tries to control you? No 09/29/2024 Comments No Sex and Gender Information Value Date Recorded Sex Assigned at Female 06/17/2024 3:27 PM EST Legal Sex Female 10:12 PM EDT Gender Identity Female 06/17/2024 3:27 PM EST Sexual Orientation Not on file documented as of this encounter Functional Status * Calculated C-SSRS Risk Score (Lifetime/Recent) Answer Date of Assessment Author No Risk Indicated 09/29/2024 12:47 PM EDT Catie Julien, FREDDIE * [place] Suicide Severity Rating Scale (Screener/Recent Self-Report) Question Answer Date of Assessment Author 1. Wish to be (Past 1 Month) No 025 12:47 PM EDT Catie Julien, FREDDIE 2. Non-Specific Active Suici ernesto Thoughts (Past 1 Month) No 09/29/2024 12:47 PM EDT Madison Julien RN 6. Suicidal Behavior (Lifetime) No 12:47 PM EDT Catie Julien, FREDDIE documented as of this encounter Plan of Treatment Upcoming Encounters Date Type Department Care Team (Late st Contact Info) Description 07/04/2025 9:45 AM EST Office Visit [facility] [address] [place] [address] Vijaya Berger PA-C [address] [place] [phone] 07/04/2025 3:00 PM EST Office Visit [facility] [address] [place] [address] Keyana Gutierrez MD [address] [place] [phone] [email or web address] documented as of this encounter Visit Diagnoses Not on filedocumented in this encounter Care Teams Cost Consultant Relationship Specialty Start Date End Date Venkata Walton MD [address] [place], [place] [id number] [email or web address] PCP - General 07/03/17 documented as of this encounter Additional Source Comments The information contained in this document represents components of the legal health record. It is not the complete legal health record.[facility]
--- OUTSIDE RECORDS SUMMARY | 2025-05-25 12:36 | XMS_ITS | Encounter Summary ---
Author Organization [facility] Address [address] [place] [address] Phone Care Team Providers Care Simplex Printer Installer Name Role Phone Venkata Walton MD Primary Care Provider +1- [phone] Encounter Details Date Type Department Care Team (Latest Contact Info) Description 10/28/2024 Transcribe Orders Virtual Department [address] [place] [address] Breana Cope, BODY AND FRAME MAN [address] [place] [phone] [email or web address] Right hip pain (Primary Dx); History of falling; Sacrococcygeal disorders, not elsewhere classified Social History Tobacco Use Types Packs/Day Years [...] Description 07/04/2025 9:45 AM EST Office Visit [facility] [address] [place] [address] Vijaya Berger PA-C [address] [address] 07/04/2025 3:00 PM EST Office Visit [facility] [address] [place] [address] Keyana Gutierrez MD [address] [place] [address] [email or web address] Scheduled Orders Name Type Priority Associated Diagnoses Orde r Schedule XR Hips with Pelvis (Bilateral) Imaging Routine Right hip pain History of falling Sacrococcygeal disorders, not elsewhere classified Expected: 10/28/2024, Expires: 10/28/2025 documented as of this encounter Visit Diagnoses Diagnosis Right hip pain- Primary Pain in joint, pelvic region and thigh History of falling Sacrococcygeal disorders, not elsewhere classified documented in this encounter Care Teams Simplex Printer Installer Relationship Specialty Start Date End Date Venkata Walton MD [address] [place] [address] [email or web address] PCP - General 07/03/17 documented as of this encounter Additional Source Comments The information contained in this document represents components of the legal health record. It is not the complete legal health record.[facility]
--- OUTSIDE RECORDS SUMMARY | 2025-05-25 12:36 | XMS_ITS | Encounter Summary ---
Author Organization [facility] Address [address] [address] Phone Care Team Providers Care Breakdown Person Name Role Phone Venkata Walton MD Primary Care Provider +1- [phone] Reason for Referral * Physical Therapy (Routine) - Closed Specialty Diagnoses / Procedures Referred By Marlene t Referred To Contact Physical Therapy Diagnoses Encounter for rehabilitation Jean Oh MD Phone: tel: fax: [email or web address] [facility] [address] [place] [address] Phone: tel: Referral ID Status Reason Start Date Expiration Date Visits Re quested Visits Authorized [id number] Closed 03/31/2018 06/29/2019 99 [phone] Encounter Details Date Type Department Care Team (Latest Contact Info) Description 03/31/2018 Transcribe Orders [facility] [address] [place] [address] Jean Oh MD [address] [place] [address] [email or web address] Encounter for rehabilitation (Primary Dx) Social History [...] Description 07/04/2025 9:45 AM EST Office Visit [facility] 10 [place] [address] Vijaya Berger PA-C [address] [address] 07/04/2025 3:00 PM EST Office Visit [facility] [address] [place] [address] Keyana Gutierrez MD [address] [place] [address] [email or web address] Scheduled Referrals Name Type Priority Associated Diagnoses Orde r Schedule Ambulatory referral to [facility] Physical Therapy Outpatient Referral Routine Encounter for rehabilitation Ordered: 03/31/2018 documented as of this encounter Visit Diagnoses Diagnosis Encounter for rehabilitation- Primary documented in this encounter Care Teams Breakdown Person Relationship Specialty Start Date End Date Venkata Walton MD [address] [place] [address] PCP - General 07/03/17 documented as of this encounter Additional Source Comments The information contained in this document represents components of the legal health record. It is not the complete legal health record.[facility]
--- OUTSIDE RECORDS SUMMARY | 2025-05-25 12:36 | XMS_ITS | Encounter Summary ---
Author Organization [facility] Address 399 [facility] [address] [place] [address] Phone Care Team Providers Care Training And Development Rep Name Role Phone Venkata Walton MD Primary Care Provider +1- [phone] Encounter Details Date Type Department Care Team (Late st Contact Info) Description 10/01/2024 Procedure Pass [facility] 30 [place] [address] Social History Tobacco Use Types Packs/Day Years [...] Description 07/04/2025 9:45 AM EST Office Visit [facility] 10 [place] [address] Vijaya Berger PA-C [address] [address] 07/04/2025 3:00 PM EST Office Visit [facility] [address] [place] [address] Keyana Gutierrez MD [address] [place] [address] [email or web address] documented as of this encounter Visit Diagnoses Not on filedocumented in this encounter Care Teams Training And Development Rep Relationship Specialty Start Date End Date Venkata Walton MD [address] [place] [address] PCP - General 07/03/17 documented as of this encounter Additional Source Comments The information contained in this document represents components of the legal health record. It is not the complete legal health record.[facility]
--- OUTSIDE RECORDS SUMMARY | 2025-05-25 12:36 | XMS_ITS | Encounter Summary ---
Author Organization [facility] Address [address] [facility] [address] [place] [address] Phone Care Team Providers Care Hot Die Picker Name Role Phone Venkata Walton MD Primary Care Provider +1- [phone] Encounter Details Date Type Department Care Team (Late st Contact Info) Description 11/18/2024 Procedure Pass [facility], Ct Scan - [facility] 30 [place] [address] Social History Tobacco Use Types Packs/Day Years [...] as food, clothing, or medical care? No 11/18/2024 In the past 12 months have y ou been in a relationship with a person who hurts, threatens, or tries to control you? No 11/18/2024 Are you denied basic needs s uch as food, clothing, or medical care? No 11/18/2024 In the past 12 months have y ou been in a relationship with a person who hurts, threatens, or tries to control you? No 11/18/2024 Comments No Sex and Gender Information Value Date Recorded Sex Assigned at Female 06/17/2024 3:27 PM EST Legal Sex Female 10:12 PM EDT Gender Identity Female 06/17/2024 3:27 PM EST Sexual Orientation Not on file documented as of this encounter Functional Status * Calculated C-SSRS Risk Score (Lifetime/Recent) Answer Date of Assessment Author No Risk Indicated 11/18/2024 4:12 PM EDT Rachel Alex RN * [place] Suicide Severity Rating Scale (Screener/Recent Self-Report) Question Answer Date of Assessment Author 1. Wish to be (Past 1 Month) No 11/18/2024 4:12 PM EDT Isabel Frances RN 2. Non-Specific Active Suicidal Thoughts (Past 1 Month) No 11/18/2024 4:12 PM EDT Isabel Frances RN 6. Suicidal Behavior (Lifetime) No 11/18/2024 4:12 PM EDT Isabel Frances RN documented as of this encounter Plan of Treatment Upcoming Encounters Date Type Department Care Team (Late st Contact Info) Description 07/04/2025 9:45 AM EST Office Visit [facility] [address] [place] [address] Vijaya Berger PA-C [address] [place] [address] 07/04/2025 3:00 PM EST Office Visit [facility] [address] [place] [address] [place] [address] Keyana Gutierrez MD [address] [place] [address] [email or web address] documented as of this encounter Visit Diagnoses Not on filedocumented in this encounter Care Teams Hot Die Picker Relationship Specialty Start Date End Date Venkata Walton MD [address] [place] [address] [email or web address] PCP - General 07/03/17 documented as of this encounter Additional Source Comments The information contained in this document represents components of the legal health record. It is not the complete legal health record.[facility]
--- OUTSIDE RECORDS SUMMARY | 2025-05-25 12:36 | XMS_ITS | Encounter Summary ---
Author Organization [facility] Address [address] [facility] [address] [place] [address] Phone Care Team Providers Care Die Cast Engineer Name Role Phone Venkata Walton MD Primary Care Provider +1- [phone] Encounter Details Date Type Department Care Team (Late st Contact Info) Description 10/01/2024 Procedure Pass [facility] 30 [place] [address] Social History Tobacco Use Types Packs/Day Years [...] Description 07/04/2025 9:45 AM EST Office Visit [facility] 10 [place] [address] Vijaya Berger PA-C [address] [address] 07/04/2025 3:00 PM EST Office Visit [facility] [address] [place] [address] Keyana Gutierrez MD [address] [place] [address] [email or web address] documented as of this encounter Visit Diagnoses Not on filedocumented in this encounter Care Teams Die Cast Engineer Relationship Specialty Start Date End Date Venkata Walton MD [address] [place] [address] PCP - General 07/03/17 documented as of this encounter Additional Source Comments The information contained in this document represents components of the legal health record. It is not the complete legal health record.[facility]
--- OUTSIDE RECORDS SUMMARY | 2025-05-25 12:36 | XMS_ITS | Encounter Summary ---
Author Organization [facility] Address 399 [facility] [address] [place] [address] Phone Care Team Providers Care Labor Economics Professor Name Role Phone Venkata Walton MD Primary Care Provider +1- [phone] Encounter Details Date Type Department Care Team (Late st Contact Info) Description 11/18/2024 Procedure Pass [facility], Ct Scan - [facility] 30 [place] [address] Social History Tobacco Use Types Packs/Day Years [...] 4:12 PM EDT Rachel Alex RN * [place] Suicide Severity Rating Scale (Screener/Recent Self-Report) Question [...] Description 07/04/2025 9:45 AM EST Office Visit [facility] [address] [place] [address] Vijaya Berger PA-C [address] [place] [address] 07/04/2025 3:00 PM EST Office Visit [facility] [address] [place] [address] [place] [address] Keyana Gutierrez MD [address] [place] [address] [email or web address] documented as of this encounter Visit Diagnoses Not on filedocumented in this encounter Care Teams Labor Economics Professor Relationship Specialty Start Date End Date Venkata Walton MD [address] [place] [address] [email or web address] PCP - General 07/03/17 documented as of this encounter Additional Source Comments The information contained in this document represents components of the legal health record. It is not the complete legal health record.[facility]
--- OUTSIDE RECORDS SUMMARY | 2025-05-25 12:36 | XMS_ITS | Encounter Summary ---
Author Organization [facility] Address 399 [facility] [address] [place] [address] Phone Care Team Providers Care Bass Fisher Name Role Phone Venkata Walton MD Primary Care Provider +1- [phone] Encounter Details Date Type Department Care Team (Late st Contact Info) Description 06/17/2024 Procedure Pass [facility], Ct Scan - [facility] 30 [place] [address] Social History Tobacco Use Types Packs/Day Years [...] as food, clothing, or medical care? No 06/17/2024 In the past 12 months have y ou been in a relationship with a person who hurts, threatens, or tries to control you? No 06/17/2024 Are you denied basic needs s uch as food, clothing, or medical care? No 06/17/2024 In the past 12 months have y ou been in a relationship with a person who hurts, threatens, or tries to control you? No 06/17/2024 Comments No Sex and Gender Information Value Date Recorded Sex Assigned at Female 06/17/2024 3:27 PM EST Legal Sex Female 10:12 PM EDT Gender Identity Female 06/17/2024 3:27 PM EST Sexual Orientation Not on file documented as of this encounter Functional Status * Calculated C-SSRS Risk Score (Lifetime/Recent) Answer Date of Assessment Author No Risk Indicated 06/17/2024 3:26 PM Blessing Lam RN * [place] Suicide Severity Rating Scale (Screener/Recent Self-Report) Question Answer Date of Assessment Author 1. Wish to be (Past 1 Month) No 024 3:26 PM Blessing Lam RN 2. Non-Specific Active Suici ernesto Thoughts (Past 1 Month) No 06/17/2024 3:26 PM Blessing Lam, FREDDIE 6. Suicidal Behavior (Lifetime) No 3:26 PM Blessing Lam RN documented as of this encounter Plan of Treatment Upcoming Encounters Date Type Department Care Team (Late st Contact Info) Description 07/04/2025 9:45 AM EST Office Visit [facility] Gastroenterology Clinic [address] [place] [address] Vijaya Berger PA-C [address] [place] [address] 07/04/2025 3:00 PM EST Office Visit [facility] [address] [place] [address] [place] [address] Keyana Gutierrez MD [address] [place] [phone] [email or web address] documented as of this encounter Visit Diagnoses Not on filedocumented in this encounter Care Teams Bass Fisher Relationship Specialty Start Date End Date Venkata Walton MD [address] [place] [address] [email or web address] PCP - General 07/03/17 documented as of this encounter Additional Source Comments The information contained in this document represents components of the legal health record. It is not the complete legal health record.[facility]
--- OUTSIDE RECORDS SUMMARY | 2025-05-25 12:36 | XMS_ITS | Clinical Summary ---
Author Organization [facility] Address [address] [place] [address] Care Team Providers Care Molder Trimmer Name Role Phone Unavailable Primary Care Provider Unavailabl e Allergies Active Allergy Reactions Criticality Noted Date Comments Penicillins Unknown/Patient and Family Unable to Define Medium 12/13/2021 Medications methotrexate 5 MG tablet Take 5 mg by mouth once a week Verify any order for freqs more than 3x per week. Active leuCOVORIN (WELLCOVORIN) 5 MG tablet Take 5 mg by mouth daily. Active calcitonin, salmon, (MIACALCIN) 200 UNIT/ACT nasal spray 1 spray by Alternating Nares route daily. Active adalimumab (HUMIRA) 40 MG/0.4ML pen-injector kit CITRATE FREE Inject 40 mg under the skin every 14 days (2 weeks). Active losartan (COZAAR) 100 MG tablet Take 100 mg by mouth daily. Active folic acid (FOLVITE) 1 MG tablet Take 1 mg by mouth daily. Active amitriptyline (ELAVIL) 25 MG tablet Take 25 mg by mouth nightly. Active Social History Tobacco Use Types Packs/Day Years Used Date Smoking Tobacco: Never Smokeless Tobacco: Never Alcohol Use Standard Drinks/Week Comments Yes 0 (1 standard drink = 0.6 oz pur e alcohol) occassionally Comments Unknown Sex and Gender Information Value Date Recorded Sex Assigned at Not on file Legal Sex Female 11:56 AM EDT Gender Identity Not on file Sexual Orientation Not on file Last Filed Vital Signs Vital Sign Reading Time Taken Comments Blood Pressure 164/70 12/13/2021 2:53 PM EDT Pulse 74 12/13/2021 2:53 PM EDT Temperature 36.8 C (98.2 F) 12/13/2021 2:53 PM EDT Respiratory Rate 16 12/13/2021 2:53 PM EDT Oxygen Saturation 98% 12/13/2021 2:53 PM EDT Inhaled Oxygen Concentration - - Weight 77.1 kg (170 lb) 12/13/2021 12:03 PM EDT Height - - Body Mass Index - - Plan of Treatment Health Maintenance Due Date Last Done Comments Advance Care Planning 1940 COVID-19 Vaccine (#1) 1945 Quantiferon Gold TB 1950 DTaP/Tdap/Td Vaccines (1 - Tdap) 11/12/1959 Pneumococcal Vaccines 50+ (1 of 2 - PCV) 11/12/1959 Zoster (Shingles) Vaccine (1 of 2) 11/12/1959 DXA Bone Density (Females,Ag es 65 and older) 2005 RSV Vaccine 50 years and old er and Patients (1 - 1-dose 75+ series) 11/12/2015 Influenza Vaccine 01/28/2025 Hepatitis B Vaccines Aged Out No long er eligible based on patient's age to complete this topic Insurance MEDICARE PART A & B [facility]
--- OUTSIDE RECORDS SUMMARY | 2025-05-25 12:36 | XMS_ITS | Encounter Summary ---
Author Organization [facility] Address 399 [facility] [address] [place] [address] Phone Care Team Providers Care Banking Supervisor Name Role Phone Venkata Walton MD Primary Care Provider +1- [phone] Encounter Details Date Type Department Care Team (Late st Contact Info) Description 07/02/2024 Ancillary Orders [facility], X-Ray - [address] [place] [address] Venkata Walton MD [address] [place] [address] [email or web address] Rib pain (Primary Dx) Social History Tobacco Use Types [...] Description 07/04/2025 9:45 AM EST Office Visit [facility] [address] [place] [address] Vijaya Berger PA-C [address] [place] [address] 07/04/2025 3:00 PM EST Office Visit [facility] [address] [place] [address] Keyana Gutierrez MD [address] [place] [address] [email or web address] documented as of this encounter Results * XR RIBS 3 OR MORE VIEWS WITH PA CHEST (LEFT) (07/02/2024 12:00 PM EST) Anatomical Region Laterality Modality Chest Computed Radiogr aphy 07/02/2024 3:31 PM EST Impressions 07/02/2024 3:34 PM EST No displaced left-sided rib fracture. Narrative 07/02/2024 3:34 PM EST XR RIBS 3 OR MORE VIEWS WITH PA CHEST (LEFT) Referring clinician's provided indication for this examination in [facility]: Pain COMPARISON: XR CHEST PA AND LATERAL 2 VIEWS FINDINGS: No displaced left-sided rib fracture. PA evaluation of the chest demonstrates elevated right hemidiaphragm with right basilar atelectasis. No pneumothorax. No edema, effusion, or consolidation. Normal heart size. Vascular calcifications. Procedure Note Boyd Burrell MD - 07/02/2024 XR RIBS 3 OR MORE VIEWS WITH PA CHEST (LEFT) Referring clinician's provided indication for this examination in [facility]:Pain COMPARISON: XR CHEST PA AND LATERAL 2 VIEWS FINDINGS: No displaced left-sided rib fracture. PA evaluation of the chest demonstrates elevated right hemidiaphragm withright basilar atelectasis. No pneumothorax. No edema, effusion, orconsolidation. Normal heart size. Vascular calcifications. IMPRESSION: No displaced left-sided rib fracture. Venkata Walton MD IMG XR CHEST Final Resu lt documented in this encounter Visit Diagnoses Diagnosis Rib pain- Primary Unspecified chest pain Rib pain Unspecified chest pain documented in this encounter Care Teams Banking Supervisor Relationship Specialty Start Date End Date Venkata Walton MD [address] [place] [address] PCP - General 07/03/17 documented as of this encounter Additional Source Comments The information contained in this document represents components of the legal health record. It is not the complete legal health record.[facility]
--- OUTSIDE RECORDS SUMMARY | 2025-05-25 12:36 | XMS_ITS | Encounter Summary ---
Author Organization [facility] Address 399 [facility] [address] [place] [address] Phone Care Team Providers Care Head Of Digital Name Role Phone Venkata Walton MD Primary Care Provider +1- [phone] Encounter Details Date Type Department Care Team (Late st Contact Info) Description 03/07/2024 Procedure Pass [facility], Ct Scan - [facility] 30 [place] [address] Social History Tobacco Use Types Packs/Day Years Used Date Smoking Tobacco: Never Smokeless Tobacco: Never Alcohol Use Standard Drinks/Week Comments No 0 (1 standard drink = 0.6 oz pur e alcohol) Home Health Assessment: Transportation Answer Date Recorded Lack of Transportation (Medical) No 03/09/2024 Lack of Transportation (Non-Medical) No 03/09/2024 Patient Unable or Declines to Respond No 03/09/2024 Education Answer Date Recorded Are you interested [...] as food, clothing, or medical care? No 03/07/2024 In the past 12 months have y ou been in a relationship with a person who hurts, threatens, or tries to control you? No 03/07/2024 Are you denied basic needs s uch as food, clothing, or medical care? No 03/07/2024 In the past 12 months have y ou been in a relationship with a person who hurts, threatens, or tries to control you? No 03/07/2024 Comments No Sex and Gender Information Value Date Recorded Sex Assigned at Female 06/17/2024 3:27 PM EST Legal Sex Female 10:12 PM EDT Gender Identity Female 06/17/2024 3:27 PM EST Sexual Orientation Not on file documented as of this encounter Functional Status * Calculated C-SSRS Risk Score (Lifetime/Recent) Answer Date of Assessment Author No Risk Indicated 03/07/2024 1:05 PM EDT Kay Francois RN * [place] Suicide Severity Rating Scale (Screener/Recent Self-Report) Question Answer Date of Assessment Author 1. Wish to be (Past 1 Month) No 03/07/2024 1:05 PM EDT Regina Talbot RN 2. Non-Specific Active Suicidal Thoughts (Past 1 Month) No 03/07/2024 1:05 PM EDT Regina Talbot RN 6. Suicidal Behavior (Lifetime) No 03/07/2024 1:05 PM EDT Regina Talbot RN documented as of this encounter Plan of Treatment Upcoming Encounters Date Type Department Care Team (Late st Contact Info) Description 07/04/2025 9:45 AM EST Office Visit [facility] G[facility]ology [facility] [address] [place] [address] Vijaya Berger PA-C [address] [place] [address] 07/04/2025 3:00 PM EST Office Visit [facility] [address] [place] [address] [place] [address] Keyana Gutierrez MD [address] [place] [phone] [email or web address] documented as of this encounter Visit Diagnoses Not on filedocumented in this encounter Care Teams Head Of Digital Relationship Specialty Start Date End Date Venkata Walton MD [address] [place] [address] [email or web address] PCP - General 07/03/17 documented as of this encounter Additional Source Comments The information contained in this document represents components of the legal health record. It is not the complete legal health record.[facility]
--- OUTSIDE RECORDS SUMMARY | 2025-05-25 12:36 | XMS_ITS | Encounter Summary ---
Author Organization [facility] Address [address] [place] [address] Phone Care Team Providers Care Pork Cutlet Maker Name Role Phone Venkata Walton MD Primary Care Provider +1- [phone] Encounter Details Date Type Department Care Team (Late st Contact Info) Description 11/23/2024 Ancillary Orders [facility], X-Ray - [address] [address] Breana Cope, MARINATOR [address] [place] [address] [phone] [email or web address] History of falling (Primary Dx) Social History Tobacco Use Types [...] Description 07/04/2025 9:45 AM EST Office Visit [facility] [address] [place] [address] Vijaya Berger PA-C [address] [address] 07/04/2025 3:00 PM EST Office Visit [facility] [address] [place] [address] Keyana Gutierrez MD [address] [place] [phone] [email or web address] documented as of this encounter Results * XR LUMBOSACRAL SPINE 2-3 VIEWS (11/23/2024 11:41 AM EDT) [facility] EMERGENCY CARE ATTENDANT COMMENT Possible new T12 compression fracture noting that evaluation is difficult secondary to alignment abnormalities. [facility] Anatomical Region Laterality Modality L-spine Computed Radiogr aphy 11/23/2024 4:25 PM EDT Impressions 11/23/2024 4:32 PM EDT Possible new T12 compression fracture noting that evaluation is difficult secondary to alignment abnormalities. T11 and L2 compression fractures status post cement augmentation. Alignment abnormalities and multilevel degenerative changes. A clinically significant result was initiated on 11/23/2024 4:31 PM, Message ID [id number]. Narrative 11/23/2024 4:32 PM EDT XR LUMBOSACRAL SPINE 2-3 VIEWS Referring clinician's provided indication for this examination in Epic: Pain COMPARISON: CT ABDOMEN/PELVIS WITH CONTRAST FINDINGS: The bones are demineralized. 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 Since the previous CT from 09/29/2024, there has been cement augmentation in the T11 and L2 compression fractures. Possible new T12 compression fracture noting that evaluation is difficult secondary to the aforementioned alignment abnormalities. Severe multilevel degenerative disc disease and degenerative facet arthritis. Degenerative changes in the right hip joint. Procedure Note Boyd Burrell MD - 11/23/2024 XR LUMBOSACRAL SPINE 2-3 VIEWS Referring clinician's provided indication for this examination in Epic:Pain COMPARISON: CT ABDOMEN/PELVIS WITH CONTRAST FINDINGS: The bones are demineralized. There is a dextroconvex lumbar scoliosis withleft lateral listhesis of L1 on L2 and right lateral listhesis of L4 onL5. Since the previous CT from 09/29/2024, there has been cement augmentation inthe T11 and L2 compression fractures. Possible new T12 compressionfracture noting that evaluation is difficult secondary to theaforementioned alignment abnormalities. Severe multilevel degenerative disc disease and degenerative facetarthritis. Degenerative changes in the right hip joint. IMPRESSION: Possible new T12 compression fracture noting that evaluation is difficultsecondary to alignment abnormalities. T11 and L2 compression fractures status post cement augmentation. Alignment abnormalities and multilevel degenerative changes. A clinically significant result was initiated on 11/23/2024 4:31 PM,Message ID [id number]. us Breana Cope MARINATOR IMG XR SPINE Final Result documented in this encounter Visit Diagnoses Diagnosis History of falling- Primary History of falling documented in this encounter Care Teams Pork Cutlet Maker Relationship Specialty Start Date End Date Venkata Walton MD [address] [place] [phone] [email or web address] PCP - General 07/03/17 documented as of this encounter Additional Source Comments The information contained in this document represents components of the legal health record. It is not the complete legal health record.[facility]
--- OUTSIDE RECORDS SUMMARY | 2025-05-25 12:36 | XMS_ITS | Encounter Summary ---
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, unspecified laterality Procedures MRI Lumbar Spine Breana Cope NP [address] [place] [phone] Phone: tel: fax: [email or web address] Referral ID Status Reason Start Date Expiration Date Visits Re quested Visits Authorized [id number] Closed 12/13/2024 12/13/2025 1 1 Encounter Details Date Type Department Care Team (Latest Contact Info) Description 12/13/2024 Transcribe Orders Virtual Department [address] [place] [address] Breana Cope NP [address] [place] [phone] [email or web address] History of falling (Primary Dx); Wedge compression fracture of T11-T12 vertebra, initial encounter for closed fracture; 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, unspecified laterality Social History Tobacco Use Types Packs/Day Years [...] Description 07/04/2025 9:45 AM EST Office Visit [facility] [address] [place] [address] Vijaya Berger PA-C [address] [address] 07/04/2025 3:00 PM EST Office Visit [facility] [address] [place] [address] Keyana Gutierrez MD [address] [place] [phone] [email or web address] documented as of this encounter Results * MRI LUMBAR SPINE (NEURO) WITHOUT CONTRAST (01/13/2025 12:19 PM EDT) Anatomical Region Laterality Modality L-spine Magnetic Resonan ce 01/14/2025 8:19 AM EDT Impressions 01/14/2025 8:35 AM EDT Motion degraded exam. 1. Moderate compression fracture involving the superior endplate of T12 vertebral body is noted with approximately 35% vertebral body height loss. This is associated with surrounding bone marrow edema. This corresponds to the abnormality seen on the radiograph from October 2024 and new from September 2024. 2. Severe vertebral body compression fracture deformities are noted at T11 and L2 levels status post vertebral augmentation. There is persistent surrounding bone marrow edema associated with the fractures. 3. Moderate to severe degenerative changes of the lumbar spine without evidence of high-grade spinal canal narrowing. Multiple areas of high-grade foraminal narrowing are seen as described. Narrative 01/14/2025 8:35 AM EDT MRI LUMBAR SPINE (NEURO) WITHOUT CONTRAST Referring clinician's provided indication for this examination in Epic: Outside Radiology Order; history of falling TECHNIQUE: MRI LUMBAR SPINE (NEURO) WITHOUT CONTRAST COMPARISON: MRI LUMBAR SPINE (NEURO) WITHOUT CONTRAST ; XR LUMBOSACRAL SPINE 2-3 VIEWS ; CT ABDOMEN/PELVIS WITH CONTRAST FINDINGS: Motion degraded exam. Alignment and Vertebrae: The usual lumbar lordosis is preserved. There is rightward curvature of the lumbar spine apex at L3 level. Minimal retrolisthesis/retropulsion of the posterior fracture fragment is noted at T11 and T12. This is similar to September 2024. Mild stepwise retrolisthesis is seen spanning L1- S1 levels. Moderate compression fracture involving the superior endplate of T12 vertebral body is noted with approximately 35% vertebral body height loss. This is associated with surrounding bone marrow edema. This corresponds to the abnormality seen on the radiograph from October 2024 and new from September 2024. Severe vertebral body compression fracture deformities are noted at T11 and L2 levels status post vertebral augmentation. Residual surrounding bone marrow edema is noted. Marrow: Diffusely T1 heterogeneous appearance of the bone marrow can be seen in the setting of osteopenia or red marrow reconversion. This limits evaluation for focal marrow replacing lesion. Within this limitation, there is no evidence of suspicious bone marrow replacing lesion. Discogenic bone marrow edema is seen around L1-L2, L3-L4, and L4-5 levels. Discs and Endplates: Moderate and severe intervertebral disc height loss and loss of normal T2 disc signal are seen . Conus: The conus terminates at L1 level. No evidence of abnormal signal in the visualized spinal cord. Soft Tissue: No prevertebral soft tissue edema. Tarlov cysts are seen at S2 level. Findings by level: T11-T12: Diffuse disc bulge with superimposed small retropulsed fracture fragment with the posterior vertebral body contributing to mild spinal canal narrowing. There is also severe right and moderate to severe left foraminal narrowing at this level. T12-L1: Diffuse disc bulge with superimposed central disc protrusion and mild bilateral facet arthropathy are seen. These contribute to mild spinal canal narrowing and mild right foraminal narrowing. L1-L2: Diffuse disc bulge with superimposed left foraminal/extraforaminal disc protrusion and mild to moderate bilateral facet arthropathy are seen. These contribute to mild spinal canal narrowing and severe left foraminal narrowing. L2-L3: Diffuse disc bulge and mild to moderate bilateral facet arthropathy are seen. These contribute to mild spinal canal narrowing and mild to moderate bilateral foraminal narrowing L3-L4: Diffuse disc bulge with superimposed right foraminal disc protrusion and moderate bilateral facet arthropathy are seen. These contribute to mild to moderate spinal canal narrowing with partial effacement of the subarticular recesses bilaterally. There is also moderate bilateral foraminal narrowing at this level L4-L5: Diffuse disc bulge and moderate bilateral facet arthropathy are seen. These contribute to mild spinal canal narrowing and mild to moderate bilateral foraminal narrowing. L5-S1: Diffuse disc bulge and moderate bilateral facet arthropathy are seen. These contribute to severe right and mild left foraminal narrowing. Procedure Note Rhonda Pool MD - 01/14/2025 MRI LUMBAR SPINE (NEURO) WITHOUT CONTRAST Referring clinician's provided indication for this examination in [facility]:Outside Radiology Order; history of falling TECHNIQUE: MRI LUMBAR SPINE (NEURO) WITHOUT CONTRAST COMPARISON: MRI LUMBAR SPINE (NEURO) WITHOUT CONTRAST ; XRLUMBOSACRAL SPINE 2-3 VIEWS ; CT ABDOMEN/PELVIS WITH [id number] FINDINGS: Motion degraded exam. Alignment and Vertebrae: The usual lumbar lordosis is preserved. There isrightward curvature of the lumbar spine apex at L3 level. Minimalretrolisthesis/retropulsion of the posterior fracture fragment is noted atT11 and T12. This is similar to September 2024. Mild stepwise retrolisthesisis seen spanning L1-S1 levels. Moderate compression fracture involving the superior endplate of [id number] body is noted with approximately 35% vertebral body height loss.This is associated with surrounding bone marrow edema. This corresponds tothe abnormality seen on the radiograph from October 2024 and new from September2024. Severe vertebral body compression fracture deformities are noted at T11and L2 levels status post vertebral augmentation. Residual surroundingbone marrow edema is noted. Marrow: Diffusely T1 heterogeneous appearance of the bone marrow can beseen in the setting of osteopenia or red marrow reconversion. This limitsevaluation for focal marrow replacing lesion. Within this limitation,there is no evidence of suspicious bone marrow replacing lesion.Discogenic bone marrow edema is seen around L1-L2, L3-L4, and L4-5levels. Discs and Endplates: Moderate and severe intervertebral disc height lossand loss of normal T2 disc signal are seen . Conus: The conus terminates at L1 level. No evidence of abnormal signal inthe visualized spinal cord. Soft Tissue: No prevertebral soft tissue edema. Tarlov cysts are seen atS2 level. Findings by level: T11-T12: Diffuse disc bulge with superimposed small retropulsed fracturefragment with the posterior vertebral body contributing to mild spinalcanal narrowing. There is also severe right and moderate to severe leftforaminal narrowing at this level. T12-L1: Diffuse disc bulge with superimposed central disc protrusion andmild bilateral facet arthropathy are seen. These contribute to mild spinalcanal narrowing and mild right foraminal narrowing. L1-L2: Diffuse disc bulge with superimposed left foraminal/extraforaminaldisc protrusion and mild to moderate bilateral facet arthropathy are seen.These contribute to mild spinal canal narrowing and severe left foraminalnarrowing. L2-L3: Diffuse disc bulge and mild to moderate bilateral facet arthropathyare seen. These contribute to mild spinal canal narrowing and mild tomoderate bilateral foraminal narrowing L3-L4: Diffuse disc bulge with superimposed right foraminal discprotrusion and moderate bilateral facet arthropathy are seen. Thesecontribute to mild to moderate spinal canal narrowing with partialeffacement of the subarticular recesses bilaterally. There is alsomoderate bilateral foraminal narrowing at this level L4-L5: Diffuse disc bulge and moderate bilateral facet arthropathy areseen. These contribute to mild spinal canal narrowing and mild to moderatebilateral foraminal narrowing. L5-S1: Diffuse disc bulge and moderate bilateral facet arthropathy areseen. These contribute to severe right and mild left foraminalnarrowing. IMPRESSION: Motion degraded exam. 1. Moderate compression fracture involving the superior endplate of [id number] body is noted with approximately 35% vertebral body height loss.This is associated with surrounding bone marrow edema. This corresponds tothe abnormality seen on the radiograph from October 2024 and new from September2024. 2. Severe vertebral body compression fracture deformities are noted atT11 and L2 levels status post vertebral augmentation. There is persistentsurrounding bone marrow edema associated with the fractures. 3. Moderate to severe degenerative changes of the lumbar spine withoutevidence of high-grade spinal canal narrowing. Multiple areas ofhigh-grade foraminal narrowing are seen as described. 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 It is not the complete legal health record.[facility]
--- OUTSIDE RECORDS SUMMARY | 2025-05-25 12:36 | XMS_ITS ---
Author Name [facility] Organization Unknown Encounters Encounter Type Encounter Reason Primary Diagnosis Location Date Emergency Dehydration [facility] [employer] [facility] 12/13/2021 Care Team Organization Name Specialty Phone Email Start Date End Da te [facility] [employer] NO PCP Primary Care 12/13/2021 12/13/2021 [facility] [employer] 12/13/2021
--- OUTSIDE RECORDS SUMMARY | 2025-05-25 12:36 | XMS_ITS | Encounter Summary ---
Author Organization [facility] Address [address] [place] [address] Phone Care Team Providers Care Demolition Worker Name Role Phone Venkata Walton MD Primary Care Provider +1- [phone] Encounter Details Date Type Department Care Team (Late st Contact Info) Description 12/13/2024 Procedure Pass [facility], [address] [address] Social History Tobacco Use Types Packs/Day Years [...] Visit [facility] [address] [place] [address] Vijaya Berger PA-C [address] [address] 07/04/2025 3:00 PM EST Office Visit [facility] [address] [place] [address] Keyana Gutierrez MD [address] [place] [phone] [email or web address] documented as of this encounter Visit Diagnoses Not on filedocumented in this encounter Care Teams Demolition Worker Relationship Specialty Start Date End Date Venkata Walton MD [address] [place] [address] PCP - General 07/03/17 documented as of this encounter Additional Source Comments The information contained in this document represents components of the legal health record. It is not the complete legal health record.[facility]
--- OUTSIDE RECORDS SUMMARY | 2025-05-25 12:36 | XMS_ITS | Encounter Summary ---
Author Organization [facility] Address [address] [place] [address] Phone Care Team Providers Care Mainspring Winder And Oiler Name Role Phone Venkata Walton MD Primary Care Provider +1- [phone] Encounter Details Date Type Department Care Team (Late st Contact Info) Description 06/17/2024 Procedure Pass [facility], Ct Scan - [facility] [address] [place] [address] Social History Tobacco Use Types Packs/Day Years [...] 06/17/2024 3:26 PM Blessing Lam RN * [place] Suicide Severity Rating Scale (Screener/Recent Self-Report) Question [...] Description 07/04/2025 9:45 AM EST Office Visit [facility] [address] [place] [address] Vijaya Berger PA-C [address] [place] [address] 07/04/2025 3:00 PM EST Office Visit [facility] [address] [place] [address] [place] [address] Keyana Gutierrez MD [address] [place] [phone] [email or web address] documented as of this encounter Visit Diagnoses Not on filedocumented in this encounter Care Teams Mainspring Winder And Oiler Relationship Specialty Start Date End Date Venkata Walton MD [address] [place] [address] [email or web address] PCP - General 07/03/17 documented as of this encounter Additional Source Comments The information contained in this document represents components of the legal health record. It is not the complete legal health record.[facility]
--- OUTSIDE RECORDS SUMMARY | 2025-05-25 12:37 | XMS_ITS | Encounter Summary ---
Author Organization [facility] Address [address] [place] [address] Phone Care Team Providers Care Public Health Engineer Name Role Phone Venkata Walton MD Primary Care Provider +1- [phone] Encounter Details Date Type Department Care Team (Late st Contact Info) Description 09/27/2024 Procedure Pass [facility], Ct Scan - [place] [address] [place] [address] Social History Tobacco Use Types Packs/Day Years [...] 12:47 PM EDT Catie Julien, FREDDIE * [place] Suicide Severity Rating Scale (Screener/Recent Self-Report) Question [...] Description 07/04/2025 9:45 AM EST Office Visit [facility] [address] [place] [address] Vijaya Berger PA-C [address] [place] [address] 07/04/2025 3:00 PM EST Office Visit [facility] [address] [place] [address] Keyana Gutierrez MD [address] [place] [phone] [email or web address] documented as of this encounter Visit Diagnoses Not on filedocumented in this encounter Care Teams Public Health Engineer Relationship Specialty Start Date End Date Venkata Walton MD [address] [place], [place] [id number] [email or web address] PCP - General 07/03/17 documented as of this encounter Additional Source Comments The information contained in this document represents components of the legal health record. It is not the complete legal health record.[facility]
--- OUTSIDE RECORDS SUMMARY | 2025-05-25 12:37 | XMS_ITS | Encounter Summary ---
Author Organization [facility] Address [address] [place] [address] Phone Care Team Providers Care Welder Name Role Phone Venkata Walton MD Primary Care Provider +1- [phone] Encounter Details Date Type Department Care Team (Late st Contact Info) Description 09/07/2024 Procedure Pass [facility], [address] [address] Social History Tobacco Use Types Packs/Day Years [...] 07/04/2025 9:45 AM EST Office Visit [facility] [address] [place] [address] Vijaya Berger PA-C [address] [address] 07/04/2025 3:00 PM EST Office Visit [facility] [address] [place] [address] Keyana Gutierrez MD [address] [place] [phone] [email or web address] documented as of this encounter Visit Diagnoses Not on filedocumented in this encounter Care Teams Welder Relationship Specialty Start Date End Date Venkata Walton MD [address] [place] [address] PCP - General 07/03/17 documented as of this encounter Additional Source Comments The information contained in this document represents components of the legal health record. It is not the complete legal health record.[facility]
--- OUTSIDE RECORDS SUMMARY | 2025-05-25 12:37 | XMS_ITS | Encounter Summary ---
Author Organization [facility] Address [address] [place] [address] Phone Care Team Providers Care Forest Examiner Name Role Phone Venkata Walton MD Primary Care Provider +1- [phone] Encounter Details Date Type Department Care Team (Late st Contact Info) Description 08/09/2024 Procedure Pass [facility], Ct Scan - [facility] [address] [place] [address] Social History Tobacco Use Types Packs/Day Years [...] Description 07/04/2025 9:45 AM EST Office Visit [facility] [address] [place] [address] Vijaya Berger PA-C [address] [address] 07/04/2025 3:00 PM EST Office Visit [facility] [address] [place] [address] Keyana Gutierrez MD [address] [place] [phone] [email or web address] documented as of this encounter Visit Diagnoses Not on filedocumented in this encounter Care Teams Forest Examiner Relationship Specialty Start Date End Date Venkata Walton MD [address] [place] [phone] PCP - General 07/03/17 documented as of this encounter Additional Source Comments The information contained in this document represents components of the legal health record. It is not the complete legal health record.[facility]
== END 2025-05-25 11:23 | disposition home or self-care (01) ==
LOC: HO.HSMS 10:32
PROVIDERS: PCP Internal Medicine; Visit Provider Psychiatry & Neurology Neurology
DX: R41.89 Other symptoms and signs involving cognitive functions and awareness (principal); G20.C Parkinsonism, unspecified
CPT/HCPCS: 99204; G2211

== ENCOUNTER → 2025-05-25 10:32 | Outpatient (BNVA) | payer MEDICARE, SELFPAY | PROVIDERS: PCP Internal Medicine; Visit Provider Psychiatry & Neurology Neurology | DX: R41.89 Other symptoms and signs involving cognitive functions and awareness (principal); G20.C Parkinsonism, unspecified; F02.83 Dementia in other diseases classified elsewhere, unspecified severity, with mood disturbance; Z72.0 Tobacco use; R26.81 Unsteadiness on feet; Z91.81 History of falling | CPT/HCPCS: 99202 ==